=== PATIENT | female | born 1965 | race Caucasian/White ===

== ENCOUNTER 2018-03-13 11:44 | Emergency (ER) | payer OTHER ==
[2018-03-13] MEDS ORDERED: XYLOCAINE 1% HCL 20 ML MDV IJ ONE (11:53)
--- NOTE | 2018-03-13 11:58 | ERPHSYRPT ---
- History of Present Illness Time Seen by Provider: 03/13/18 11:54 Source: patient Exam Limitations: no limitations Physician History: 52-year-old white female arrives with complaint of a laceration to her left posterior thigh symptoms since just prior to arrival. 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 Patient is not having any problems moving. Past medical history includes TIA, arrhythmia, mitral valve prolapse, syncope, arthritis, fibromyalgia, osteoporosis, colitis, osteoarthritis, myasthenia gravis. Past surgical history includes hysterectomy, tonsillectomy, cervical fusion. History, rub him Timing/Duration: today Severity: moderate Modifying Factors: Improves With: nothing Associated Symptoms: No nausea, No vomiting, No abdominal pain, No shortness of breath, No heartburn, No diaphoresis, No cough, No chills, No chest pain, No fever, No headaches, No loss of appetite, No malaise, No rash, No syncope, No seizure, No weakness Allergies/Adverse Reactions: azithromycin [From Zithromax] Allergy (Verified 03/13/18 12:00) erythromycin base [Erythromycin Base] Allergy (Verified 03/13/18 12:00) levofloxacin [From Levaquin] Allergy (Verified 03/13/18 12:00) Home Medications: Diazepam 5 mg [Valium 5 MG] 5 mg PO HS 03/21/13 [History] Gabapentin 300 mg [Neurontin 300 mg] 600 mg PO Q4H PRN PRN 03/21/13 [ History] Mycophenolate Mofetil [Cellcept] 500 mg PO BID 03/21/13 [History] Pyridostigmine [place] [Mestinon] 60 mg PO QID 03/21/13 [History] Isosorbide Mononitrate [Isosorbide Mononitrate ER] 60 mg PO DAILY 02/15/14 [ History] Montelukast Sodium [Singulair] 10 mg PO DAILY 02/03/16 [History] Pyridostigmine [place] [Pyridostigmine [place] ER] 180 mg PO BID 02/03/16 [ History] Duloxetine HCl [Cymbalta] 60 mg PO DAILY 03/13/18 [History] Hx Tetanus, Diphtheria Vaccination/Date Given: Yes (up to date) Hx Influenza Vaccination/Date Given: Yes Hx Pneumococcal Vaccination/Date Given: No - Review of Systems Constitutional: No Fever, No Chills Eyes: No Symptoms Ears, Nose, & Throat: No Symptoms Respiratory: No Cough, No Dyspnea Cardiac: No Chest Pain, No Edema, No Syncope Abdominal/Gastrointestinal: No Abdominal Pain, No Nausea, No Vomiting, No Diarrhea Genitourinary Symptoms: No Dysuria Musculoskeletal: Other (deep laceration left posterior thigh approximately 10 cm ) Skin: Other (deep laceration left posterior thigh) Neurological: No Dizziness, No Focal Weakness, No Sensory Changes Psychological: No Symptoms Endocrine: No Symptoms All Other Systems: Reviewed and Negative - Past Medical History Pertinent Past Medical History: Yes Neurological History: TIA, Other ENT History: No Pertinent History Cardiac History: Arrhythmia, Other Respiratory History: No Pertinent History Endocrine Medical History: No Pertinent History Musculoskeletal History: Arthritis, Osteoarthritis, Osteoporosis, Other GI Medical History: Colitis History: No Pertinent History Psycho-Social History: No Pertinent History Female Reproductive Disorders: No Pertinent History Other Medical History: lupus,. myasthenias gravis - Past Surgical History Past Surgical History: Yes Musculoskeletal: Other Female Surgical History: Hysterectomy Other Surgical History: tonsilectomy. cervical fusion - Social History Smoking Status: Never smoker Exposure to second hand smoke: No Drug Use: none Patient Lives Alone: No - Nursing Vital Signs Nursing Vital Signs: Initial Vital Signs Temperature 98.3 F 03/13/18 11:56 Pulse Rate 67 03/13/18 11:56 Respiratory Rate 16 03/13/18 11:56 Blood Pressure 95/54 03/13/18 11:56 O2 Sat by Pulse Oximetry 97 03/13/18 11:56 Pain Scale Pain Intensity 2 - Physical Exam General Appearance: mild distress Eye Exam: PERRL/EOMI, eyes nml inspection Ears, Nose, Throat Exam: normal ENT inspection, TMs normal, pharynx normal, moist mucous membranes Neck Exam: normal inspection, non-tender, supple, full range of motion Respiratory Exam: normal breath sounds, lungs clear, No respiratory distress Cardiovascular Exam: regular rate/rhythm, normal heart sounds, normal peripheral pulses Gastrointestinal/Abdomen Exam: soft, normal bowel sounds, No tenderness, No mass Back Exam: normal inspection, normal range of motion, No CVA tenderness, No vertebral tenderness Extremity Exam: normal range of motion, other (8.5 cm laceration left posterior thigh) Neurologic Exam: alert, oriented x 3, cooperative, normal mood/affect, nml cerebellar function, nml station & gait, sensation nml, No motor deficits Skin Exam: other (8.5 cm laceration left posterior thigh) SpO2 Interpretation: normal - Course Nursing assessment & vital signs reviewed: Yes Ordered Tests: Active Orders 24 hr Category Date Time Status Prepare for Sutures STAT Care 03/13/18 11:53 Active Sutures STAT Care 03/13/18 11:53 Active Wound Care STAT Care 03/13/18 11:53 Active Medication Summary Discontinued Medications Generic Name Dose Route Start Last Admin Trade Name Freq PRN Reason Stop Dose Admin Diphtheria/Tetanus/Acell Pertussis 0.5 ml 03/13/18 11:59 03/13/18 12:20 Adacel Vial IM 03/13/18 12:00 0.5 ml .ONCE ONE Administration Diphtheria/Tetanus/Acell Pertussis Confirm 03/13/18 12:16 Adacel Vial Administered 03/13/18 12:17 Dose 0.5 ml IM .STK-MED ONE Lidocaine HCl 5 ml 03/13/18 11:53 03/13/18 12:22 Xylocaine 1% Hcl 20 Ml Mdv IJ 03/13/18 11:54 5 ml STAT ONE Administration Lidocaine HCl Confirm 03/13/18 12:10 Xylocaine 1% Hcl 20 Ml Mdv Administered 03/13/18 12:11 Dose 1 ml .ROUTE .STK-MED ONE Lidocaine HCl Confirm 03/13/18 12:24 Xylocaine 1% Hcl 20 Ml Mdv Administered 03/13/18 12:25 Dose 10 ml .ROUTE .STK-MED ONE - Progress Progress: improved Progress Note: 03/13/18 12:31 52-year-old white female arrives with complaint of a laceration to her left posterior thigh. Patient apparently was driving a lawnmower hit a bump and a portion of the lawn more struck her left posterior thigh. She has an 8.5 cm laceration to the left posterior thigh which is fairly deep but only involves the fat and skin. She has full range of motion to her left knee ankle foot and toes good capillary refill to her left foot and toes sensation intact to her left foot and toes dorsal pedal posterior tibial pulses are intact. Laceration repair 8.5 cm left posterior thigh. Laceration was sterilely cleansed with Hibiclens and irrigated with saline by the patient's nurse. Laceration is anesthetized with 1% lidocaine. Wound is examined no foreign bodies are noted. Laceration is repaired with 7 surgical shawnee. There are also Steri-Strips placed on a fairly superficial portion of the laceration at the lateral aspect of the wound. Bacitracin is applied. Sterile dressing is applied. Patient's DTaP was updated. Patient is neurovascularly intact after repair. Will discharge. - Departure Time of Disposition: 12:34 Departure Disposition: Home Clinical Impression: Laceration of left thigh Qualifiers: Encounter type: initial encounter Qualified Code(s): S71.112A - Laceration without foreign body, left thigh, initial encounter Condition: Fair Critical Care Time: No Referrals: MINOO ESPINAL [Primary Care Provider] - Instructions: Laceration Repair With [place] ([place]) Additional Instructions: Return home. Keep area clean and dry. Bacitracin to area until healed. [place] out in 5-7 days. Follow-up with your family doctor or return if signs of infection or problems. Return for acute distress or for severe symptoms. bactrim as prescribed. Prescriptions: Smz/Tmp Ds Tablet [Bactrim Ds Tablet] 1 tab PO BID #20 tablet
[2018-03-13] MEDS ORDERED: Adacel Vial IM ONE ×2 (11:59→12:16)
[2018-03-13] MEDS ORDERED: XYLOCAINE 1% HCL 20 ML MDV ONE ×2 (12:10→12:24)
[2018-03-13] MEDS ORDERED: BACIGUENT PACKET ONE (12:36)
[2018-03-13 12:47] VITALS: BP 99/58; PULSE 68; O2SAT 98
[2018-03-14] MEDS ORDERED: XYLOCAINE 1% HCL 20 ML MDV IJ ONE (11:01)
[2018-03-14] MEDS ORDERED: BACIGUENT PACKET TP ONE (11:02)
== END 2018-03-13 13:06 | disposition home or self-care (01) ==
LOC: ED 11:44
DX: S71.112A Laceration without foreign body, left thigh, initial encounter (principal); W22.8XXA Striking against or struck by other objects, initial encounter; Y92.096 Garden or yard of other non-institutional residence as the place of occurrence of the external cause; I34.1 Nonrheumatic mitral (valve) prolapse; R55 Syncope and collapse; M19.90 Unspecified osteoarthritis, unspecified site; M79.7 Fibromyalgia; M81.0 Age-related osteoporosis without current pathological fracture; G70.00 Myasthenia gravis without (acute) exacerbation; Z86.73 Personal history of transient ischemic attack (TIA), and cerebral infarction without residual deficits; Z79.899 Other long term (current) drug therapy
CPT/HCPCS: 12002; 90471; 90715; 96372; 99284; A9270-GY

== ENCOUNTER 2019-02-28 22:23 | Observation (INO) | payer OTHER ==
[2019-02-28] MEDS ORDERED: Zofran 4 MG/2 ML VIAL IV ONE (22:47)
[2019-02-28] MEDS ORDERED: Sodium Chloride 0.9% 1000 ML 1,000 ML IV STA ×2 (22:47→23:31)
[2019-02-28] MEDS ORDERED: TORAdol 30 mg Injection IV ONE (22:47)
--- NOTE | 2019-02-28 22:47 | ERPHSYRPT ---
- History of Present Illness Time Seen by Provider: 02/28/19 22:43 Historian: patient Exam Limitations: no limitations Patient Subjective Stated Complaint: PT IS ALERT AND ORIENTED. PT IS AMBULATORY WITH A STEADY GAIT. PT COMES IN WITH C/O BILAT FLANK PAIN, LOWER ABDOMEN PRESSURE AND PAIN, PAIN WITH URINATION, FREQUENCY, HESITENCY THAT ALL STARTED TODAY. PT ABD TENDER TO TOUCH. PT URINE IS YELLOW AND CLOUDY WITH MUCOUS GROSSLY PRESENT. Triage Nursing Assessment: SEE ABOVE Physician History: abdominal pain and tenderness greater left flank onset today in 53 yr olf , prior hysterectomy and opph on left side; no vomiting; blood in urine; Timing/Duration: today Activities at Onset: none Quality: burning, sharpness Abdominal Pain Onset Location: generalized abdomen, flank Pain Radiation: periumbilical, flank Severity of Pain-Max: moderate Severity of Pain-Current: moderate Modifying Factors: Improves With: urinating Previous symptoms: no prior history Allergies/Adverse Reactions: azithromycin [From Zithromax] Allergy (Verified 03/13/18 12:00) erythromycin base [Erythromycin Base] Allergy (Verified 03/13/18 12:00) levofloxacin [From Levaquin] Allergy (Verified 03/13/18 12:00) Home Medications: Diazepam 5 mg [Valium 5 MG] 5 mg PO HS 03/21/13 [History] Gabapentin 300 mg [Neurontin 300 mg] 600 mg PO Q4H PRN PRN 03/21/13 [ History] Mycophenolate Mofetil [Cellcept] 500 mg PO BID 03/21/13 [History] Pyridostigmine [place] [Mestinon] 60 mg PO QID 03/21/13 [History] Isosorbide Mononitrate [Isosorbide Mononitrate ER] 60 mg PO DAILY 02/15/14 [ History] Montelukast Sodium [Singulair] 10 mg PO DAILY 02/03/16 [History] Pyridostigmine [place] [Pyridostigmine [place] ER] 180 mg PO BID 02/03/16 [ History] Duloxetine HCl [Cymbalta] 60 mg PO DAILY 03/13/18 [History] Hx Tetanus, Diphtheria Vaccination/Date Given: Yes (up to date) Hx Influenza Vaccination/Date Given: Yes Hx Pneumococcal Vaccination/Date Given: No Immunizations Up to Date: Yes - Review of Systems Constitutional: No Fever, No Chills Eyes: No Symptoms Ears, Nose, & Throat: No Symptoms Respiratory: No Cough, No Dyspnea Cardiac: No Chest Pain, No Edema, No Syncope Abdominal/Gastrointestinal: Abdominal Pain, No Nausea, No Vomiting, No Diarrhea Genitourinary Symptoms: Dysuria, Frequency, Hematuria, Urgency, Flank Pain Musculoskeletal: No Back Pain, No Neck Pain Skin: No Rash Neurological: No Dizziness, No Focal Weakness, No Sensory Changes Psychological: No Symptoms Endocrine: No Symptoms All Other Systems: Reviewed and Negative - Past Medical History Pertinent Past Medical History: Yes Neurological History: TIA, Other ENT History: No Pertinent History Cardiac History: Arrhythmia, Other Respiratory History: No Pertinent History Endocrine Medical History: No Pertinent History Musculoskeletal History: Arthritis, Osteoarthritis, Osteoporosis, Other GI Medical History: Colitis History: No Pertinent History Psycho-Social History: No Pertinent History Female Reproductive Disorders: No Pertinent History Other Medical History: lupus,. myasthenias gravis. FIBROMYALGIA - Past Surgical History Past Surgical History: Yes Musculoskeletal: Other Female Surgical History: Hysterectomy Other Surgical History: tonsilectomy. cervical fusion - Social History Smoking Status: Never smoker Exposure to second hand smoke: No Drug Use: none Patient Lives Alone: No - Female History Hx Now: No - Nursing Vital Signs Nursing Vital Signs: Initial Vital Signs Temperature 99.3 F 02/28/19 22:31 Pulse Rate 99 H 02/28/19 22:31 Respiratory Rate 18 02/28/19 22:31 Blood Pressure 133/83 02/28/19 22:31 O2 Sat by Pulse Oximetry 99 02/28/19 22:31 Pain Scale Pain Intensity 7 - Physical Exam General Appearance: no apparent distress, alert Eye Exam: PERRL/EOMI, eyes nml inspection Ears, Nose, Throat Exam: normal ENT inspection, pharynx normal, moist mucous membranes Neck Exam: normal inspection, non-tender, supple, full range of motion Respiratory Exam: normal breath sounds, lungs clear, No respiratory distress Cardiovascular Exam: regular rate/rhythm, normal heart sounds Gastrointestinal/Abdomen Exam: soft, tenderness, guarding, No mass Pelvic Exam: deferred Rectal Exam: deferred Back Exam: normal inspection, normal range of motion, No CVA tenderness, No vertebral tenderness Extremity Exam: normal inspection, normal range of motion, pelvis stable Neurologic Exam: alert, oriented x 3, cooperative, normal mood/affect, nml cerebellar function, sensation nml, No motor deficits Skin Exam: normal color, warm, dry SpO2: 99 - Course Nursing assessment & vital signs reviewed: Yes - CT Exams Abdomen/Pelvis CT Interpretation: Tele-radiologist Report, No appendicitis, Other ( diverticulosis ; no renal stone, pyelo , or gallstones; ) Ordered Tests: Active Orders 24 hr Category Date Time Status IV Insertion STAT Care 02/28/19 22:47 Active NPO (ED) STAT Care 02/28/19 22:47 Active ABDOMEN AND PELVIS W/0 CONTRAS [CT] Stat Exams 02/28/19 22:48 Taken AMYLASE Stat Lab 02/28/19 22:56 Completed CBC W DIFF Stat Lab 02/28/19 22:56 Completed CULTURE,URINE Stat Lab 02/28/19 22:56 Received LIPASE Stat Lab 02/28/19 22:56 Completed Lactic Acid Stat Lab 02/28/19 22:59 Completed UA W/RFX UR CULTURE Stat Lab 02/28/19 22:56 Completed Medication Summary Discontinued Medications Generic Name Dose Route Start Last Admin Trade Name Freq PRN Reason Stop Dose Admin Sodium Chloride 1,000 mls @ 999 mls/hr 02/28/19 22:47 02/28/19 23:41 Sodium Chloride 0.9% 1000 Ml IV 02/28/19 23:47 Infused .Q1H1M STA Infusion Sodium Chloride Confirm 02/28/19 22:51 Sodium Chloride 0.9% 1000 Ml Administered 02/28/19 22:52 Dose 1,000 mls @ ud .ROUTE .STK-MED ONE Ceftriaxone Sodium/Dextrose 1 g in 50 mls @ 100 mls/hr 02/28/19 23:30 23:42 Rocephin 1 Gm-D5w 50 Ml Bag IV 02/28/19 23:59 100 mls/hr STAT STA 100 mls/hr Administration Sodium Chloride 1,000 mls @ 999 mls/hr 02/28/19 23:31 02/28/19 23:43 Sodium Chloride 0.9% 1000 Ml IV 03/01/19 00:31 999 mls/hr .Q1H1M STA Administration Sodium Chloride Confirm 02/28/19 23:39 Sodium Chloride 0.9% 1000 Ml Administered 02/28/19 23:40 Dose 1,000 mls @ ud .ROUTE .STK-MED ONE Ceftriaxone Sodium/Dextrose Confirm 02/28/19 23:39 Rocephin 1 Gm-D5w 50 Ml Bag Administered 02/28/19 23:40 Dose 1 g in 50 mls @ ud IV .STK-MED ONE Ketorolac Tromethamine 30 mg 02/28/19 22:47 02/28/19 22:55 Toradol 30 Mg Injection IV 02/28/19 22:48 30 mg STAT ONE Administration Ketorolac Tromethamine Confirm 02/28/19 22:51 Toradol 30 Mg Injection Administered 02/28/19 22:52 Dose 30 mg .ROUTE .STK-MED ONE Ondansetron HCl 4 mg 02/28/19 22:47 02/28/19 22:56 Zofran 4 Mg/2 Ml Vial IV 02/28/19 22:48 4 mg STAT ONE Administration Ondansetron HCl Confirm 02/28/19 22:51 Zofran 4 Mg/2 Ml Vial Administered 02/28/19 22:52 Dose 4 mg .ROUTE .STK-MED ONE Lab/Rad Data: Laboratory Result Diagrams 02/28/19 22:56 Laboratory Results 02/28/19 02/28/19 02/28/19 Range/Units 22:59 22:56 22:56 WBC (4.0-10.5) K/mm3 RBC (4.1-5.4) M/mm3 Hgb (12.0-16.0) gm/dl Hct (35-47) % MCV (78-100) fl MCH (26-32) pg MCHC (32-36) g/dl RDW (11.5-14.0) % Plt Count (150-450) K/mm3 MPV (6-9.5) fl Gran % (36.0-66.0) % Eos # (Auto) (0-0.5) Absolute Lymphs (auto) (1.0-4.6) Absolute Monos (auto) (0.0-1.3) Lymphocytes % (24.0-44.0) % Monocytes % (0.0-12.0) % Eosinophils % (0.00-5.0) % Basophils % (0.0-0.4) % Absolute Granulocytes (1.4-6.9) Basophils # (0-0.4) Lactic Acid 1.0 (0.4-2.0) Amylase 234 H (30-110) U/L Lipase 609 H (23-300) U/L Urine Color YELLOW (YELLOW) Urine Appearance CLOUDY (CLEAR) Urine pH 5.0 (5-6) Ur Specific Reeves 1.017 (1.005-1.025) Urine Protein 100 (Negative) Urine Ketones NEGATIVE (NEGATIVE) Urine Blood LARGE (0-5) Srinath/ul Urine Nitrite NEGATIVE (NEGATIVE) Urine Bilirubin NEGATIVE (NEGATIVE) Urine Urobilinogen NEGATIVE (0-1) mg/dL Ur Leukocyte Esterase LARGE (NEGATIVE) Urine WBC (Auto) >100 (0-5) /HPF Urine RBC (Auto) >101 (0-2) /HPF U Epithel Cells (Auto) NONE (FEW) /HPF Urine Bacteria (Auto) NONE (NEGATIVE) /HPF Urine Mucus (Auto) SLIGHT (NEGATIVE) /HPF Urine Culture Reflexed YES (NO) Urine Glucose NEGATIVE (NEGATIVE) mg/dL 02/28/19 Range/Units 22:56 WBC 10.6 H (4.0-10.5) K/mm3 RBC 3.63 L (4.1-5.4) M/mm3 Hgb 11.1 L (12.0-16.0) gm/dl Hct 35.3 (35-47) % MCV 97.2 (78-100) fl MCH 30.5 (26-32) pg MCHC 31.4 L (32-36) g/dl RDW 12.0 (11.5-14.0) % Plt Count 239 (150-450) K/mm3 MPV 10.1 H (6-9.5) fl Gran % 73.5 H (36.0-66.0) % Eos # (Auto) 0.07 (0-0.5) Absolute Lymphs (auto) 2.03 (1.0-4.6) Absolute Monos (auto) 0.68 (0.0-1.3) Lymphocytes % 19.2 L (24.0-44.0) % Monocytes % 6.4 (0.0-12.0) % Eosinophils % 0.7 (0.00-5.0) % Basophils % 0.2 (0.0-0.4) % Absolute Granulocytes 7.75 H (1.4-6.9) Basophils # 0.02 (0-0.4) Lactic Acid (0.4-2.0) Amylase (30-110) U/L Lipase (23-300) U/L Urine Color (YELLOW) Urine Appearance (CLEAR) Urine pH (5-6) Ur Specific Reeves (1.005-1.025) Urine Protein (Negative) Urine Ketones (NEGATIVE) Urine Blood (0-5) Srinath/ul Urine Nitrite (NEGATIVE) Urine Bilirubin (NEGATIVE) Urine Urobilinogen (0-1) mg/dL Ur Leukocyte Esterase (NEGATIVE) Urine WBC (Auto) (0-5) /HPF Urine RBC (Auto) (0-2) /HPF U Epithel Cells (Auto) (FEW) /HPF Urine Bacteria (Auto) (NEGATIVE) /HPF Urine Mucus (Auto) (NEGATIVE) /HPF Urine Culture Reflexed (NO) Urine Glucose (NEGATIVE) mg/dL - Progress Progress: improved, re-examined Progress Note: 03/01/19 00:59 dicussed with pt and dr boston and all agree best to place pt in on obs for treatment of pancreatitis , and urinary infection Discussed with .: Jose Maria Will see patient in: hospital (observation) Counseled pt/family regarding: lab results, diagnosis, need for follow-up, rad results - Departure Departure Disposition: Observation Clinical Impression: Pancreatitis, UTI/early pyelo Condition: Good Critical Care Time: No Referrals: MINOO BOSTON [Primary Care Provider] -
[2019-02-28] MEDS ORDERED: Sodium Chloride 0.9% 1000 ML 1,000 ML ONE ×2 (22:51→23:39)
[2019-02-28] MEDS ORDERED: TORAdol 30 mg Injection ONE (22:51)
[2019-02-28] MEDS ORDERED: Zofran 4 MG/2 ML VIAL ONE (22:51)
[2019-02-28 22:58] LABS: BASOPHIL % 0.2 % (0.0-0.4); Basophil (Absolute #) 0.02 (0-0.4); Eosinophil % 0.7 % (0.00-5.0); Eosinophil (Absolute #) 0.07 (0-0.5); Granulocyte Absolute (ANC) 7.75 (1.4-6.9); Granulocytes % 73.5 % (36.0-66.0); Hematocrit 35.3 % (35-47); Hemoglobin 11.1 gm/dl (12.0-16.0); Lymphocyte (Absolute #) 2.03 (1.0-4.6); Lymphocytes % 19.2 % (24.0-44.0); Mean Cell Volume 97.2 fl (78-100); Mean Corpuscular Hgb Concent. 31.4 g/dl (32-36); Mean Platelet Volume 10.1 fl (6-9.5); Monocyte (Absolute #) 0.68 (0.0-1.3); Monocytes % 6.4 % (0.0-12.0); Platelet Count 239 K/mm3 (150-450); Red Blood Count 3.63 M/mm3 (4.1-5.4); White Blood Count 10.6 K/mm3 (4.0-10.5)
[2019-02-28 23:03] LABS: Mean Corpuscular Hemoglobin 30.5 pg (26-32)
[2019-02-28 23:12] LABS: AMYLASE 234 U/L (30-110)
[2019-02-28 23:18] LABS: Appearance CLOUDY (CLEAR); Bilirubin NEGATIVE (NEGATIVE); Blood LARGE Ery/ul (0-5); Glucose NEGATIVE (NEGATIVE); Ketones NEGATIVE (NEGATIVE); Leukocyte Esterase LARGE (NEGATIVE); Mucus SLIGHT /HPF (NEGATIVE); Nitrite NEGATIVE (NEGATIVE); Protein,Urine Dip 100 (Negative); Specific Gravity 1.017 (1.005-1.025); Urobilinogen NEGATIVE mg/dL (0-1); WBC >100 /HPF (0-5)
[2019-02-28 23:19] LABS: RBC >101 /HPF (0-2)
[2019-02-28] MEDS ORDERED: ROCEPHIN 1 Gm-D5w 50 ml Bag** 1 G/50 ML IVPB IV STA (23:30)
[2019-02-28] MEDS ORDERED: ROCEPHIN 1 Gm-D5w 50 ml Bag** 1 G/50 ML IVPB IV ONE (23:39)
[2019-03-01] MEDS ORDERED: DILAUDID 2 MG INJECTION IV PRN (01:51)
[2019-03-01] MEDS ORDERED: Valium 5 MG PO PRN ×2 (01:51→07:46)
[2019-03-01] MEDS ORDERED: NovoLIN R SQ PRN (01:51)
[2019-03-01] MEDS ORDERED: TYLENOL 325 MG PO PRN (01:51)
[2019-03-01] MEDS ORDERED: Zofran 4 MG/2 ML VIAL IV PRN (01:51)
[2019-03-01] MEDS: Sodium Chloride 0.9% 1000 ML 1,000 ML IV SCH ×3 (01:59→21:54)
[2019-03-01] MEDS ORDERED: NEURONTIN 300 MG PO SCH (02:00)
[2019-03-01] MEDS ORDERED: NEURONTIN 300 MG ONE (02:46)
[2019-03-01 05:59] LABS: BASOPHIL % 0.1 % (0.0-0.4); Basophil (Absolute #) 0.01 (0-0.4); Eosinophil % 1.2 % (0.00-5.0); Eosinophil (Absolute #) 0.09 (0-0.5); Granulocytes % 69.4 % (36.0-66.0); Hematocrit 32.3 % (35-47); Lymphocyte (Absolute #) 1.69 (1.0-4.6); Lymphocytes % 22.1 % (24.0-44.0); Mean Cell Volume 98.2 fl (78-100); Mean Platelet Volume 10.5 fl (6-9.5); Monocyte (Absolute #) 0.55 (0.0-1.3); Monocytes % 7.2 % (0.0-12.0); Platelet Count 199 K/mm3 (150-450); Red Blood Count 3.29 M/mm3 (4.1-5.4); White Blood Count 7.6 K/mm3 (4.0-10.5)
[2019-03-01 06:06] LABS: Mean Corpuscular Hemoglobin 30.3 pg (26-32)
[2019-03-01 06:21] LABS: ALBUMIN 3.5 g/dL (3.5-5.0); ALKALINE PHOSPHATASE 75 U/L (38-126); AMYLASE 217 U/L (30-110); ANION GAP 4.3 MEQ/L (5-15); BLOOD UREA NITROGEN 13 mg/dL (7-17); CHLORIDE 117 mmol/L (98-107); Calcium 8.6 mg/dL (8.4-10.2); Carbon Dioxide 25 mmol/L (22-30); Creatinine 1 0.67 mg/dL (0.52-1.04); Glucose 92 mg/dL (74-106); SGOT/AST 38 U/L (14-36); SGPT/ALT 29 U/L (0-35); SODIUM 142 mmol/L (137-145); Total Protein 5.9 g/dL (6.3-8.2)
[2019-03-01] MEDS ORDERED: PATIENT OWN MEDICATION PO PRN (09:32)
[2019-03-01] MEDS ORDERED: NON-FORMULARY ITEM (Pyridostigmine Bromide [Mestinon] 60 MG) PO SCH (10:00)
[2019-03-01] MEDS ORDERED: PATIENT OWN MEDICATION PO SCH ×6 (10:00→22:00)
[2019-03-01] MEDS ORDERED: MYCOPHENOLATE MOFETIL 1000 MG PO SCH (10:00)
[2019-03-01] MEDS ORDERED: Imdur 60MG PO SCH (10:00)
[2019-03-01] MEDS ORDERED: Cymbalta 30 MG Capsule PO SCH (10:00)
[2019-03-01] MEDS ORDERED: Singulair 10 MG PO SCH (10:00)
[2019-03-01] MEDS ORDERED: PROTONIX 40 MG IV IV SCH (10:00)
[2019-03-01] MEDS ORDERED: PYRIDOSTIGMINE BROMIDE 180 MG PO SCH (10:00)
[2019-03-01] MEDS ORDERED: Nitrostat 0.4 MG Tablet SL PRN (11:00)
[2019-03-01] MEDS ORDERED: Voltaren GEL TOP PRN (11:00)
[2019-03-01] MEDS ORDERED: TYLENOL EXTRA STRENGTH 500 MG PO SCH (11:00)
[2019-03-01] MEDS ORDERED: TYLENOL EXTRA STRENGTH 500 MG PO PRN (11:01)
[2019-03-01] MEDS: Pepcid 20 MG VIAL IV SCH ×2 (11:07→22:07)
[2019-03-01] MEDS: PATIENT OWN MEDICATION PO SCH ×3 (11:11→22:14)
[2019-03-01] MEDS ORDERED: MEDICATION INTERVENTION MC SCH (11:15)
[2019-03-01] MEDS: PYRIDIUM 200 MG PO SCH ×2 (11:23→22:12)
[2019-03-01] MEDS: BACTRIM DS TABLET PO SCH ×2 (12:03→22:12)
[2019-03-01] MEDS: NORCO 5/325 MG PO PRN ×2 (13:10→19:55)
--- NOTE | 2019-03-01 13:25 | XRAY ---
Indication: Bilateral flank pain. Discolored urine. Multiple contiguous axial images obtained through the abdomen and pelvis without contrast as ordered. Comparison: September 23, 2011. Lung bases demonstrate mild bibasilar dependent atelectasis. No infiltrate or effusion. Heart is not enlarged. Stomach is distended with food/fluid. Noncontrasted stomach and bowel loops appear nonobstructed. Normal appendix. There is now mild/moderate diffuse scattered colonic fecal debris throughout and scattered descending/sigmoid diverticulosis. No free fluid/air. Remaining liver, gallbladder, pancreas, spleen, adrenal glands, kidneys, ureters, bladder, and aorta appear unremarkable for noncontrast exam. Osseous structures intact. Impression: 1. New fecal stasis without obstruction. 2. Again incidental descending/sigmoid diverticulosis without diverticulitis. 3. Remaining CT abdomen/pelvis without contrast exam is negative. Comment: Preliminary interpretation was made by [facility]. No critical discrepancy. CTDI 11.13
[2019-03-01] MEDS: NEURONTIN 300 MG PO PRN ×2 (16:40→22:12)
[2019-03-01] MEDS ORDERED: ROCEPHIN 1 Gm-D5w 50 ml Bag** 1 G/50 ML IVPB IV SCH (22:00)
[2019-03-02 05:47] LABS: BASOPHIL % 0.3 % (0.0-0.4); Basophil (Absolute #) 0.01 (0-0.4); Eosinophil % 1.6 % (0.00-5.0); Eosinophil (Absolute #) 0.06 (0-0.5); Hematocrit 32.6 % (35-47); Hemoglobin 10.2 gm/dl (12.0-16.0); Lymphocyte (Absolute #) 1.31 (1.0-4.6); Lymphocytes % 34.4 % (24.0-44.0); Mean Cell Volume 97.6 fl (78-100); Mean Corpuscular Hemoglobin 30.5 pg (26-32); Mean Corpuscular Hgb Concent. 31.3 g/dl (32-36); Mean Platelet Volume 10.1 fl (6-9.5); Monocyte (Absolute #) 0.33 (0.0-1.3); Monocytes % 8.7 % (0.0-12.0); Platelet Count 186 K/mm3 (150-450); Red Blood Count 3.34 M/mm3 (4.1-5.4); White Blood Count 3.8 K/mm3 (4.0-10.5)
[2019-03-02 06:14] LABS: ALBUMIN 3.4 g/dL (3.5-5.0); ALKALINE PHOSPHATASE 57 U/L (38-126); AMYLASE 140 U/L (30-110); ANION GAP 4.1 MEQ/L (5-15); BLOOD UREA NITROGEN 11 mg/dL (7-17); CHLORIDE 115 mmol/L (98-107); Calcium 8.6 mg/dL (8.4-10.2); Carbon Dioxide 26 mmol/L (22-30); Creatinine 1 0.65 mg/dL (0.52-1.04); Glucose 89 mg/dL (74-106); SGOT/AST 27 U/L (14-36); SGPT/ALT 25 U/L (0-35); SODIUM 141 mmol/L (137-145); Total Protein 5.9 g/dL (6.3-8.2)
[2019-03-02] MEDS: NEURONTIN 300 MG PO PRN (06:46)
[2019-03-02] MEDS: PATIENT OWN MEDICATION PO SCH (06:47)
[2019-03-02 07:34] VITALS: BP 140/65; PULSE 63; O2SAT 92
[2019-03-02] MEDS ORDERED: NON-FORMULARY ITEM (Duloxetine Hcl [Cymbalta] 20 MG) PO SCH (10:00)
--- NOTE | 2019-03-02 11:28 | HP ---
CHIEF COMPLAINT: Urgency, frequency and abdominal pain. HISTORY OF PRESENT ILLNESS: The patient is a 53 year-old white female who reports that she was shopping with her and she began having problems with urgency of urination. She reports she went to the bathroom and urinated but felt like she immediately had to go again. She began having problems with flank pain and presented to the emergency room for further evaluation and management. PAST MEDICAL/SURGICAL HISTORY: Significant for myasthenia gravis which has been under control for years. She has fibromyalgia, lupus erythematosus. She has had hysterectomy, tonsillectomy and cervical fusion for spinal stenosis. HOME MEDICATIONS: Valium 5 mg at night, gabapentin 300 mg tablets 2 tablets PRN. She is on CellCept 500 mg b.i.d., Mestinon 60 mg four times a day, isosorbide mononitrate 60 mg a day, Montelukast 10 mg a day, pyridostigmine 180 mg b.i.d., duloxetine 60 mg a day. ALLERGIES: LEVAQUIN, ERYTHROMYCIN, TRAMADOL. PHYSICAL EXAMINATION: The patient's vital signs on admission showed a temperature 99.3F, pulse 99, respiratory rate 18 and blood pressure 133/83. O2 saturation 99%. HEENT: Normocephalic, atraumatic. Pupils equal round reactive to light. Extraocular movements intact. Oropharynx is pink and moist. NECK: Supple without lymphadenopathy, thyromegaly or JVD. CHEST: Clear to auscultation. HEART: Regular rate and rhythm. ABDOMEN: Soft. There is some flank tenderness on the left side. There are no palpable masses. EXTREMITIES: Without cyanosis, clubbing or edema. NEUROLOGIC: The patient is alert and oriented x3. LAB DATA AND TESTS: Laboratory studies from the emergency room revealed white count of 10,600, hemoglobin 11.1, PLT count 239,000 with 73.5% granulocytes. Lactic acid 1.0. Urine with specific gravity 1.017. Nitrite was negative however there were greater than 100 white blood cells per high power field and also greater than 100 red blood cells per high power field. Amylase 234 and lipase 609 somewhat elevated. Her metabolic panel otherwise sugar was 92, BUN 13, creatinine 0.67. ASSESSMENT: A patient with pyelonephritis, elevation in pancreatic enzymes. CT scan showed no abnormalities intra-abdominal or otherwise. The patient has been placed in the hospital on IV fluids, pain control and IV Rocephin. She will continue her usual home medications otherwise as noted above.
== END 2019-03-02 09:40 | disposition home or self-care (01) ==
LOC: ED 22:23 → MED SURG 03-01 01:45
PROVIDERS: ADMIT Family Medicine; ATTEND Family Medicine
DX: N12 Tubulo-interstitial nephritis, not specified as acute or chronic (principal); R10.9 Unspecified abdominal pain; R79.89 Other specified abnormal findings of blood chemistry; Z79.899 Other long term (current) drug therapy
CPT/HCPCS: 36000; 36415; 74176; 80053; 81001; 82150; 83605; 83690; 85025; 87077; 87086; 87186; 93268; 94762; 96360; 96361; 96365; 96374; 96375; 99285; G0378; J0696; J1170; J1885; J2405; A9270-GY

== ENCOUNTER 2019-04-06 06:09 | Day surgery (SDC) | payer OTHER ==
[2019-04-06] MEDS ORDERED: Lactated Ringers 1,000 ML IV ONE (06:37)
[2019-04-06] MEDS ORDERED: Lactated Ringers 1,000 ML IV SCH (07:00)
[2019-04-06] MEDS ORDERED: DIPRIVAN 200 MG/20 ML IV ONE (07:17)
[2019-04-06 08:24] VITALS: O2SAT 100
--- NOTE | 2019-04-06 08:51 | OP ---
SURGERY DATE/TIME: 04/06/2019 0732 PREOPERATIVE DIAGNOSIS: Left upper quadrant abdominal pain. POSTOPERATIVE DIAGNOSIS: Mild gastritis. PROCEDURE: Esophagogastroduodenoscopy with cold forceps biopsy of gastric antrum. SURGEON: Dr. Moise. ANESTHESIA: Medications were given by the anesthesia department. BRIEF HISTORY: The patient is a 53 year old white female presenting now with abdominal pain particularly in the left upper quadrant. The patient was felt the need to have endoscopic evaluation and she had previously had her gallbladder evaluation and CT scan performed as well. The patient was described the risks of the procedure including the risk of perforation, phlebitis, untoward reaction to medication, bleeding and missed lesions. The patient verbalized her understanding and desired to have the procedure performed. DESCRIPTION OF PROCEDURE: The patient was given the medications by the anesthesia department. She had continuous pulse oximetry, ECG monitoring, intermittent blood pressure monitoring and tidal CO2 monitoring during the examination. She was placed in the left lateral decubitus position. A bite block was placed. The flexible Olympus gastroscope was used to intubate the oropharynx. A view of the larynx was obtained and was normal. The scope was easily passed in the esophagus which was normal throughout its length. The stomach was entered where normal gastric rugal folds were seen and these distended nicely with insufflation of air. The scope was passed along the greater curvature of the stomach to the antrum. The pylorus was encountered and intubated. The duodenum inspected and found to be normal. The scope is withdrawn towards the stomach. Again, a retroflex view was obtained of the lesser curvature, fundus and cardia regions of the stomach and these appeared normal as well. The scope was then redirected towards the gastric antrum where biopsies were obtained to rule out the presence of Helicobacter pylori-type organisms. The scope was then removed from the patient who tolerated the procedure well and was sent back to the hospital [facility] in good condition.
[2019-04-06 09:07] VITALS: BP 121/69; PULSE 59
== END 2019-04-06 09:10 | disposition home or self-care (01) ==
LOC: SDC 06:09
PROVIDERS: ATTEND Family Medicine
DX: K29.70 Gastritis, unspecified, without bleeding (principal)
CPT/HCPCS: J2704

== ENCOUNTER 2019-05-08 22:04 | Emergency (ER) | payer OTHER ==
--- NOTE | 2019-05-08 22:18 | ERPHSYRPT ---
- History of Present Illness Time Seen by Provider: 05/08/19 22:18 Historian: patient Exam Limitations: no limitations Physician History: 53 y/o white female with h/o myasthenia gravis as well as recent admission into hospital 03/01/19 for pancreatitis and pyelonephritis. pts pcp is dr. boston. pt has had chronic low level abd pain ever since then. however, she has had several episodes of worsening abd pain. unknown reason for pancreatitis. pt also with chronic right hip pain with mri scheduled saturday05/11/19 and fibromyalgia. denies n/v/d but has decreased appetite Timing/Duration: today Quality: cramping Abdominal Pain Onset Location: generalized abdomen Severity of Pain-Max: moderate Severity of Pain-Current: moderate Associated Symptoms: loss of appetite Previous symptoms: same symptoms as today Allergies/Adverse Reactions: azithromycin [From Zithromax] Allergy (Severe, Verified 04/06/19 06:28) myasthenia crisis erythromycin base [Erythromycin Base] Allergy (Severe, Verified 04/06/19 06:28) myasthenia crisis levofloxacin [From Levaquin] Allergy (Severe, Verified 04/06/19 06:28) myasthenia crisis tramadol [From Ultram] Adverse Reaction (Verified 04/06/19 06:28) Rash Home Medications: Diazepam 5 mg [Valium 5 MG] 5 mg PO HS 03/21/13 [History] Mycophenolate Mofetil [Cellcept] 1,000 mg PO BID 03/21/13 [History] Isosorbide Mononitrate [Isosorbide Mononitrate ER] 60 mg PO DAILY 02/15/14 [ History] Pyridostigmine [place] [Pyridostigmine [place] ER] 180 mg PO BID 02/03/16 [ History] Duloxetine HCl [Cymbalta] 20 mg PO BID 03/13/18 [History] Acetaminophen 500 mg [Tylenol Extra Strength 500 mg] 1,000 mg PO Q4H PRN 03/01/19 [History] Diclofenac Sodium Gel [Voltaren GEL] 1 gm TOP BIDPRN PRN 03/01/19 [History ] Gabapentin [Neurontin] 1,200 mg PO BID 03/01/19 [History] Gabapentin [Neurontin] 600 mg PO BID 03/01/19 [History] Nitroglycerin 0.4 mg Tablet [Nitrostat 0.4 MG Tablet] 1 mg SL Q5MIN PRN MR X 3 PRN 03/01/19 [History] Pyridostigmine [place] [Mestinon] 60 mg PO BID 03/01/19 [History] Dicyclomine HCl 20 mg [Bentyl 20 mg] 20 mg PO TID 05/08/19 [History] Omeprazole Magnesium [Prilosec Otc] 20 mg PO DAILY 05/08/19 [History] Hx Tetanus, Diphtheria Vaccination/Date Given: Yes (up to date) Hx Influenza Vaccination/Date Given: Yes Hx Pneumococcal Vaccination/Date Given: No - Review of Systems Constitutional: No Symptoms Eyes: No Symptoms Ears, Nose, & Throat: No Symptoms Respiratory: No Symptoms Cardiac: No Symptoms Abdominal/Gastrointestinal: Abdominal Pain, Appetite Changes Genitourinary Symptoms: No Symptoms Musculoskeletal: Joint Pain (chronic right hip pain) Skin: No Symptoms Neurological: No Symptoms Psychological: No Symptoms Endocrine: No Symptoms Hematologic/Lymphatic: No Symptoms Immunological/Allergic: No Symptoms All Other Systems: Reviewed and Negative - Past Medical History Pertinent Past Medical History: Yes Neurological History: TIA, Other ENT History: No Pertinent History Cardiac History: Arrhythmia, Other Respiratory History: No Pertinent History Endocrine Medical History: No Pertinent History Musculoskeletal History: Arthritis, Osteoarthritis, Osteoporosis, Other GI Medical History: Colitis History: No Pertinent History Psycho-Social History: No Pertinent History Female Reproductive Disorders: No Pertinent History Other Medical History: lupus,. myasthenias gravis. FIBROMYALGIA. syncope arrythmia. mitral valve prolapse - Past Surgical History Past Surgical History: Yes Neuro Surgical History: No Pertinent History Cardiac: Other Respiratory: No Pertinent History Gastrointestinal: No Pertinent History Genitourinary: No Pertinent History Musculoskeletal: Other Female Surgical History: Hysterectomy Other Surgical History: tonsilectomy. cervical fusion. usually has to stay in hospital after receiving general anesthesia - Social History Smoking Status: Never smoker Exposure to second hand smoke: No Drug Use: none Patient Lives Alone: No - Nursing Vital Signs Nursing Vital Signs: Initial Vital Signs Temperature 98.3 F 05/08/19 22:16 Pulse Rate 67 05/08/19 22:16 Respiratory Rate 16 05/08/19 22:16 Blood Pressure 123/65 05/08/19 22:16 O2 Sat by Pulse Oximetry 100 05/08/19 22:16 Pain Scale Pain Intensity 6 - Physical Exam General Appearance: mild distress, alert, anxiety Eye Exam: PERRL/EOMI, eyes nml inspection Ears, Nose, Throat Exam: normal ENT inspection, moist mucous membranes Neck Exam: normal inspection, non-tender, supple, full range of motion Respiratory Exam: normal breath sounds, lungs clear, airway intact, No chest tenderness, No respiratory distress Cardiovascular Exam: regular rate/rhythm, normal heart sounds, normal peripheral pulses Gastrointestinal/Abdomen Exam: soft, tenderness (diffuse), No guarding, No rebound Pelvic Exam: not done Rectal Exam: not done Back Exam: normal inspection, normal range of motion, No CVA tenderness, No vertebral tenderness Extremity Exam: normal inspection, normal range of motion, pelvis stable Neurologic Exam: alert, oriented x 3, cooperative, manual writer II-XII nml as tested, normal mood/affect, nml cerebellar function, nml station & gait, sensation nml Skin Exam: normal color, warm, dry Lymphatic Exam: No adenopathy SpO2 Interpretation: normal SpO2: 100 O2 Delivery: Room Air - Course Nursing assessment & vital signs reviewed: Yes Ordered Tests: Active Orders 24 hr Category Date Time Status IV Insertion STAT Care 05/08/19 22:26 Active ABDOMEN AND PELVIS W/0 CONTRAS [CT] Stat Exams 05/08/19 22:34 Taken AMYLASE Stat Lab 05/08/19 22:38 Completed CBC W DIFF Stat Lab 05/08/19 22:38 Completed CMP Stat Lab 05/08/19 22:38 Completed CULTURE,URINE Stat Lab 05/08/19 22:41 Received LIPASE Stat Lab 05/08/19 22:38 Completed Lactic Acid Stat Lab 05/08/19 22:50 Completed UA W/RFX UR CULTURE Stat Lab 05/08/19 22:41 Completed Medication Summary Discontinued Medications Generic Name Dose Route Start Last Admin Trade Name Freq PRN Reason Stop Dose Admin Cephalexin HCl 500 mg 05/09/19 01:34 05/09/19 01:57 Keflex 500 Mg PO 05/09/19 01:35 500 mg STAT ONE Administration Cephalexin HCl Confirm 05/09/19 01:55 Keflex 500 Mg Administered 05/09/19 01:56 Dose 500 mg .ROUTE .STK-MED ONE Hydromorphone HCl 1 mg 05/08/19 22:33 05/08/19 22:45 Hydromorphone 1 Mg/Ml Ampule IV 05/08/19 22:34 1 mg STAT ONE Administration Hydromorphone HCl Confirm 05/08/19 22:40 Hydromorphone 1 Mg/Ml Ampule Administered 05/08/19 22:41 Dose 1 mg .ROUTE .STK-MED ONE Sodium Chloride 1,000 mls @ 999 mls/hr 05/08/19 22:33 05/09/19 00:14 Sodium Chloride 0.9% 1000 Ml IV 05/08/19 23:33 Infused .Q1H1M STA Infusion Sodium Chloride Confirm 05/08/19 22:41 Sodium Chloride 0.9% 1000 Ml Administered 05/08/19 22:42 Dose 1,000 mls @ ud .ROUTE .STK-MED ONE Ondansetron HCl 4 mg 05/08/19 22:33 05/08/19 22:45 Zofran 4 Mg/2 Ml Vial IV 05/08/19 22:34 4 mg STAT ONE Administration Ondansetron HCl Confirm 05/08/19 22:40 Zofran 4 Mg/2 Ml Vial Administered 05/08/19 22:41 Dose 4 mg .ROUTE .STK-MED ONE Lab/Rad Data: Laboratory Result Diagrams 05/08/19 22:38 05/08/19 22:38 Laboratory Results 05/08/19 05/08/19 05/08/19 Range/Units 22:50 22:41 22:38 WBC (4.0-10.5) K/mm3 RBC (4.1-5.4) M/mm3 Hgb (12.0-16.0) gm/dl Hct (35-47) % MCV (78-100) fl MCH (26-32) pg MCHC (32-36) g/dl RDW (11.5-14.0) % Plt Count (150-450) K/mm3 MPV (6-9.5) fl Gran % (36.0-66.0) % Eos # (Auto) (0-0.5) Absolute Lymphs (auto) (1.0-4.6) Absolute Monos (auto) (0.0-1.3) Lymphocytes % (24.0-44.0) % Monocytes % (0.0-12.0) % Eosinophils % (0.00-5.0) % Basophils % (0.0-0.4) % Absolute Granulocytes (1.4-6.9) Basophils # (0-0.4) Sodium 142 (137-145) mmol/L Potassium 3.6 (3.5-5.1) mmol/L Chloride 110 H (98-107) mmol/L Carbon Dioxide 29 (22-30) mmol/L Anion Gap 6.9 (5-15) MEQ/L BUN 8 (7-17) mg/dL Creatinine 0.70 (0.52-1.04) mg/dL Estimated GFR > 60.0 ML/MIN Glucose 97 (74-106) mg/dL Lactic Acid 0.5 (0.4-2.0) Calcium 9.4 (8.4-10.2) mg/dL Total Bilirubin 0.50 (0.2-1.3) mg/dL AST 29 (14-36) U/L ALT 14 (0-35) U/L Alkaline Phosphatase 73 (38-126) U/L Serum Total Protein 7.7 (6.3-8.2) g/dL Albumin 4.6 (3.5-5.0) g/dL Amylase 167 H (30-110) U/L Lipase 231 (23-300) U/L Urine Color YELLOW (YELLOW) Urine Appearance CLEAR (CLEAR) Urine pH 5.0 (5-6) Ur Specific [place] 1.012 (1.005-1.025) Urine Protein NEGATIVE (Negative) Urine Ketones NEGATIVE (NEGATIVE) Urine Blood NEGATIVE (0-5) Srinath/ul Urine Nitrite NEGATIVE (NEGATIVE) Urine Bilirubin NEGATIVE (NEGATIVE) Urine Urobilinogen NEGATIVE (0-1) mg/dL Ur Leukocyte Esterase SMALL (NEGATIVE) Urine WBC (Auto) 11-15 (0-5) /HPF Urine RBC (Auto) 0-2 (0-2) /HPF U Epithel Cells (Auto) NONE (FEW) /HPF Urine Bacteria (Auto) NONE (NEGATIVE) /HPF Urine Mucus (Auto) SLIGHT (NEGATIVE) /HPF Urine Culture Reflexed YES (NO) Urine Glucose NEGATIVE (NEGATIVE) mg/dL 05/08/19 Range/Units 22:38 WBC 5.0 (4.0-10.5) K/mm3 RBC 4.17 (4.1-5.4) M/mm3 Hgb 12.3 (12.0-16.0) gm/dl Hct 39.6 (35-47) % MCV 95.0 (78-100) fl MCH 29.5 (26-32) pg MCHC 31.1 L (32-36) g/dl RDW 11.7 (11.5-14.0) % Plt Count 281 (150-450) K/mm3 MPV 10.4 H (6-9.5) fl Gran % 41.0 (36.0-66.0) % Eos # (Auto) 0.04 (0-0.5) Absolute Lymphs (auto) 2.37 (1.0-4.6) Absolute Monos (auto) 0.53 (0.0-1.3) Lymphocytes % 47.4 H (24.0-44.0) % Monocytes % 10.6 (0.0-12.0) % Eosinophils % 0.8 (0.00-5.0) % Basophils % 0.2 (0.0-0.4) % Absolute Granulocytes 2.05 (1.4-6.9) Basophils # 0.01 (0-0.4) Sodium (137-145) mmol/L Potassium (3.5-5.1) mmol/L Chloride (98-107) mmol/L Carbon Dioxide (22-30) mmol/L Anion Gap (5-15) MEQ/L BUN (7-17) mg/dL Creatinine (0.52-1.04) mg/dL Estimated GFR ML/MIN Glucose (74-106) mg/dL Lactic Acid (0.4-2.0) Calcium (8.4-10.2) mg/dL Total Bilirubin (0.2-1.3) mg/dL AST (14-36) U/L ALT (0-35) U/L Alkaline Phosphatase (38-126) U/L Serum Total Protein (6.3-8.2) g/dL Albumin (3.5-5.0) g/dL Amylase (30-110) U/L Lipase (23-300) U/L Urine Color (YELLOW) Urine Appearance (CLEAR) Urine pH (5-6) Ur Specific [place] (1.005-1.025) Urine Protein (Negative) Urine Ketones (NEGATIVE) Urine Blood (0-5) Srinath/ul Urine Nitrite (NEGATIVE) Urine Bilirubin (NEGATIVE) Urine Urobilinogen (0-1) mg/dL Ur Leukocyte Esterase (NEGATIVE) Urine WBC (Auto) (0-5) /HPF Urine RBC (Auto) (0-2) /HPF U Epithel Cells (Auto) (FEW) /HPF Urine Bacteria (Auto) (NEGATIVE) /HPF Urine Mucus (Auto) (NEGATIVE) /HPF Urine Culture Reflexed (NO) Urine Glucose (NEGATIVE) mg/dL - Progress Progress: improved, pain not gone completely, re-examined Progress Note: 05/09/19 01:57 ct abd/pelvis-no acute process. chronic diverticulosis Counseled pt/family regarding: lab results, diagnosis, need for follow-up, rad results - Departure Departure Disposition: Home Clinical Impression: UTI (urinary tract infection), Diverticulosis Condition: Stable Critical Care Time: No Referrals: MINOO BOSTON [Primary Care Provider] - Additional Instructions: drink plenty of fluids. follow up with dr. boston for persistent or recurrent symptoms Prescriptions: Cephalexin Mh 500 mg [Keflex 500 mg] 500 mg PO TID #21 capsule
[2019-05-08] MEDS ORDERED: Hydromorphone 1 mg/ml Ampule IV ONE (22:33)
[2019-05-08] MEDS ORDERED: Sodium Chloride 0.9% 1000 ML 1,000 ML IV STA (22:33)
[2019-05-08] MEDS ORDERED: Zofran 4 MG/2 ML VIAL IV ONE (22:33)
[2019-05-08] MEDS ORDERED: Zofran 4 MG/2 ML VIAL ONE (22:40)
[2019-05-08] MEDS ORDERED: Hydromorphone 1 mg/ml Ampule ONE (22:40)
[2019-05-08] MEDS ORDERED: Sodium Chloride 0.9% 1000 ML 1,000 ML ONE (22:41)
[2019-05-08 22:42] LABS: Absolute Neutrophil Ct (ANC) 2.05 (1.4-6.9); BASOPHIL % 0.2 % (0.0-0.4); Basophil (Absolute #) 0.01 (0-0.4); Eosinophil % 0.8 % (0.00-5.0); Eosinophil (Absolute #) 0.04 (0-0.5); Hematocrit 39.6 % (35-47); Hemoglobin 12.3 gm/dl (12.0-16.0); Lymphocyte (Absolute #) 2.37 (1.0-4.6); Lymphocytes % 47.4 % (24.0-44.0); Mean Corpuscular Hemoglobin 29.5 pg (26-32); Mean Corpuscular Hgb Concent. 31.1 g/dl (32-36); Mean Platelet Volume 10.4 fl (6-9.5); Monocyte (Absolute #) 0.53 (0.0-1.3); Monocytes % 10.6 % (0.0-12.0); Platelet Count 281 K/mm3 (150-450); Red Blood Count 4.17 M/mm3 (4.1-5.4); Red Cell Distribution Width 11.7 % (11.5-14.0)
[2019-05-08 22:50] LABS: Appearance CLEAR (CLEAR); Bilirubin NEGATIVE (NEGATIVE); Blood NEGATIVE Ery/ul (0-5); Glucose NEGATIVE (NEGATIVE); Ketones NEGATIVE (NEGATIVE); Leukocyte Esterase SMALL (NEGATIVE); Mucus SLIGHT /HPF (NEGATIVE); Nitrite NEGATIVE (NEGATIVE); Protein,Urine Dip NEGATIVE (Negative); RBC 0-2 /HPF (0-2); Specific Gravity 1.012 (1.005-1.025); Urobilinogen NEGATIVE mg/dL (0-1)
[2019-05-08 23:27] LABS: ALBUMIN 4.6 g/dL (3.5-5.0); ALKALINE PHOSPHATASE 73 U/L (38-126); AMYLASE 167 U/L (30-110); ANION GAP 6.9 MEQ/L (5-15); BLOOD UREA NITROGEN 8 mg/dL (7-17); CHLORIDE 110 mmol/L (98-107); Calcium 9.4 mg/dL (8.4-10.2); Carbon Dioxide 29 mmol/L (22-30); Glucose 97 mg/dL (74-106); LIPASE 231 U/L (23-300); Potassium 3.6 mmol/L (3.5-5.1); SGOT/AST 29 U/L (14-36); SGPT/ALT 14 U/L (0-35); SODIUM 142 mmol/L (137-145); Total Protein 7.7 g/dL (6.3-8.2)
[2019-05-09] MEDS ORDERED: KEFLEX 500 MG PO ONE (01:34)
[2019-05-09] MEDS ORDERED: KEFLEX 500 MG ONE (01:55)
[2019-05-09 02:33] VITALS: BP 101/62; PULSE 60; O2SAT 98
--- NOTE | 2019-05-09 08:48 | XRAY ---
Indication: Chronic abdomen pain. Myasthenia gravis. Lupus. Multiple contiguous axial images obtained through the abdomen and pelvis without contrast as ordered. Comparison: February 28, 2019 Lung bases again demonstrates bibasilar dependent atelectasis. No infiltrate or effusion. Heart is not enlarged. Noncontrasted stomach and bowel loops appear nonobstructed. Normal appendix. No free fluid/air. Stable scattered descending/sigmoid diverticulosis and 9 mm right lobe hepatic cyst. Uterus again not seen. Gallbladder is mildly distended without gallstones. No free fluid/air. Remaining liver, gallbladder, pancreas, spleen, adrenal glands, kidneys, ureters, bladder, and aorta appear unremarkable for noncontrast exam. Osseous structures intact. Stable tiny fatty umbilical hernia. Impression: 1. Stable hepatic cyst, colonic diverticulosis, and tiny fatty umbilical hernia. 2. Remaining CT abdomen/pelvis without contrast exam is negative. Comment: Preliminary interpretation was made by [facility]. No critical discrepancy. CTDI 11.11
== END 2019-05-09 02:40 | disposition home or self-care (01) ==
LOC: ED 22:04
DX: N39.0 Urinary tract infection, site not specified (principal); K57.90 Diverticulosis of intestine, part unspecified, without perforation or abscess without bleeding
CPT/HCPCS: 36000; 36415; 74176; 80053; 81001; 82150; 83605; 83690; 85025; 87086; 96360; 96374; 96375; 99284; J1170; J2405; A9270-GY

== ENCOUNTER 2019-05-25 20:22 | Emergency (ER) | payer OTHER ==
--- NOTE | 2019-05-25 20:52 | ERPHSYRPT ---
- History of Present Illness Time Seen by Provider: 05/25/19 20:51 Historian: patient Exam Limitations: clinical condition Patient Subjective Stated Complaint: PT ARRIVED TODAY WITH ABDOINAL PAIN THAT HAS BEEN GOING ON FOR SEVERAL WEEKS BUT BECOME WORSE TODAY. PT STATES SHE SAW AT NEUROLOGY HAD HIP AND BACK MRI. PT RATES PAIN IN BACK AND ABDOMEN 8/10 Triage Nursing Assessment: PT IS ALERT AND ORIENTED, RATES PAIN IN ABDOMEN AT 8/ 10 Physician History: Patient is here with chief complaint of midepigastric abdominal pain. Patient notes that she has had abdominal pain since her hospital admission in February for pancreatitis and feels that she never completely recovered. Patient notes that near the end of March or early April is when she began to decline again. Patient notes that her pain is in her midepigastric region and goes through to her back and she rates her pain at 8-10. patient has been nauseated. Patient is notwill able to take NSAIDS due to history of gastritis. Patient took Tylenol this a.m. Timing/Duration: week(s), worse, other (Pt had a hospitaliation for Pancreatitis in February and feels that she never got better all the way and began to worsen around the end of March until today when she is having a difficult time standing to walk. And) Activities at Onset: rest Quality: burning, sharpness (and) Abdominal Pain Onset Location: epigastric Pain Radiation: back Severity of Pain-Max: severe Severity of Pain-Current: severe (pt rates her pain at an 8/10 this evening. Pt notes that she had natural child and this is bad pain.) Modifying Factors: Improves With: movement Associated Symptoms: back, fatigue, vomiting, weakness Previous symptoms: same symptoms as today, recent hospitalization, other ( pancreatitis, IBS, Chron's, Fibromyalgia, Myasthenia Gravis) Allergies/Adverse Reactions: azithromycin [From Zithromax] Allergy (Severe, Verified 05/25/19 20:40) myasthenia crisis erythromycin base [Erythromycin Base] Allergy (Severe, Verified 05/25/19 20:40) myasthenia crisis levofloxacin [From Levaquin] Allergy (Severe, Verified 05/25/19 20:40) myasthenia crisis tramadol [From Ultram] Adverse Reaction (Verified 05/25/19 20:40) Rash Home Medications: Diazepam 5 mg [Valium 5 MG] 5 mg PO HS 08/10/13 [History] Mycophenolate Mofetil [Cellcept] 1,000 mg PO BID 03/21/13 [History] Isosorbide Mononitrate [Isosorbide Mononitrate ER] 60 mg PO DAILY 02/15/14 [ History] Pyridostigmine [place] [Pyridostigmine [place] ER] 180 mg PO BID 02/03/16 [ History] Duloxetine HCl [Cymbalta] 20 mg PO BID 03/13/18 [History] Acetaminophen 500 mg [Tylenol Extra Strength 500 mg] 1,000 mg PO Q4H PRN 03/01/19 [History] Diclofenac Sodium Gel [Voltaren GEL] 1 gm TOP BIDPRN PRN 03/01/19 [History ] Gabapentin [Neurontin] 1,200 mg PO BID 03/01/19 [History] Gabapentin [Neurontin] 600 mg PO BID 03/01/19 [History] Nitroglycerin 0.4 mg Tablet [Nitrostat 0.4 MG Tablet] 1 mg SL Q5MIN PRN MR X 3 PRN 03/01/19 [History] Pyridostigmine [place] [Mestinon] 60 mg PO BID 03/01/19 [History] Dicyclomine HCl 20 mg [Bentyl 20 mg] 20 mg PO TID 05/08/19 [History] Omeprazole Magnesium [Prilosec Otc] 20 mg PO DAILY 05/08/19 [History] Hx Tetanus, Diphtheria Vaccination/Date Given: Yes (up to date) Hx Influenza Vaccination/Date Given: Yes Hx Pneumococcal Vaccination/Date Given: No - Review of Systems Eyes: No Symptoms Ears, Nose, & Throat: No Symptoms Respiratory: No Symptoms Cardiac: No Symptoms Abdominal/Gastrointestinal: Abdominal Pain, Nausea, Vomiting Musculoskeletal: Back Pain Skin: No Symptoms Neurological: No Symptoms Psychological: No Symptoms - Past Medical History Pertinent Past Medical History: Yes Neurological History: Migraines ENT History: No Pertinent History Cardiac History: Arrhythmia, Other Respiratory History: No Pertinent History Endocrine Medical History: No Pertinent History Musculoskeletal History: Arthritis, Osteoarthritis, Osteoporosis, Other GI Medical History: Colitis, Diverticulosis History: No Pertinent History Psycho-Social History: No Pertinent History Female Reproductive Disorders: No Pertinent History Other Medical History: lupus,GASTRITIS. myasthenias gravis. FIBROMYALGIA. syncope arrythmia. mitral valve prolapse - Past Surgical History Past Surgical History: Yes Neuro Surgical History: No Pertinent History Cardiac: Other Respiratory: No Pertinent History Gastrointestinal: No Pertinent History Genitourinary: No Pertinent History Musculoskeletal: Other Female Surgical History: Hysterectomy Other Surgical History: tonsilectomy. cervical fusion. usually has to stay in hospital after receiving general anesthesia. HYSTERECTOMY - Social History Smoking Status: Never smoker Exposure to second hand smoke: No Drug Use: none Patient Lives Alone: No - Nursing Vital Signs Nursing Vital Signs: Initial Vital Signs Temperature 98.9 F 05/25/19 20:26 Pulse Rate 74 05/25/19 20:26 Respiratory Rate 18 05/25/19 20:26 Blood Pressure 133/83 05/25/19 20:26 O2 Sat by Pulse Oximetry 100 05/25/19 20:26 Pain Scale Pain Intensity 3 - Physical Exam General Appearance: no apparent distress, alert, thin, other (low energy) Eye Exam: PERRL/EOMI Neck Exam: normal inspection Respiratory Exam: normal breath sounds, lungs clear, airway intact Cardiovascular Exam: regular rate/rhythm, normal heart sounds, normal peripheral pulses, capillary refill <2 sec Gastrointestinal/Abdomen Exam: soft, normal bowel sounds, tenderness, No pulsatile mass, No splenomegaly Extremity Exam: normal inspection Neurologic Exam: alert, oriented x 3, cooperative, normal mood/affect Skin Exam: normal color, warm, dry, No petechiae, No jaundice SpO2: 100 Ordered Tests: Active Orders 24 hr Category Date Time Status IV Insertion STAT Care 05/25/19 21:10 Active NPO (ED) STAT Care 05/25/19 21:10 Active ABDOMEN AND PELVIS W CONTRAST [CT] Stat Exams 05/25/19 21:12 Taken AMYLASE Stat Lab 05/25/19 21:32 Completed CBC W DIFF Stat Lab 05/25/19 21:32 Completed CMP Stat Lab 05/25/19 21:32 Completed LIPASE Stat Lab 05/25/19 21:32 Completed Lactic Acid Stat Lab 05/25/19 21:35 Completed Occult Blood, Other Screening Stat Lab 05/25/19 23:52 Completed UA W/RFX UR CULTURE Stat Lab 05/25/19 21:33 Completed Medication Summary Discontinued Medications Generic Name Dose Route Start Last Admin Trade Name Freq PRN Reason Stop Dose Admin Famotidine 20 mg 05/26/19 00:01 05/26/19 00:15 Pepcid 20 Mg PO 05/26/19 00:02 20 mg STAT ONE Administration Famotidine Confirm 05/26/19 00:06 Pepcid 20 Mg Administered 05/26/19 00:07 Dose 20 mg .ROUTE .STK-MED ONE Lidocaine HCl 10 ml 05/25/19 21:10 05/25/19 21:42 Xylocaine Viscous 2% 20 Ml Cup PO 05/25/19 21:11 10 ml STAT ONE Administration Lidocaine HCl Confirm 05/25/19 21:35 Xylocaine Hcl Viscous * Administered 05/25/19 21:36 Dose 10 ml .ROUTE .STK-MED ONE Morphine Sulfate 4 mg 05/25/19 23:55 05/26/19 00:03 Morphine Sulfate 4 Mg Inj IV 05/25/19 23:56 4 mg STAT ONE Administration Morphine Sulfate Confirm 05/26/19 00:01 Morphine Sulfate 4 Mg Inj Administered 05/26/19 00:02 Dose 4 mg .ROUTE .STK-MED ONE Ondansetron HCl 4 mg 05/25/19 21:10 05/25/19 21:41 Zofran 4 Mg/2 Ml Vial IV 05/25/19 21:11 4 mg STAT ONE Administration Ondansetron HCl Confirm 05/25/19 21:34 Zofran 4 Mg/2 Ml Vial Administered 05/25/19 21:35 Dose 4 mg .ROUTE .STK-MED ONE Pantoprazole Sodium 40 mg 05/25/19 21:10 05/25/19 21:41 Protonix 40 Mg Iv IV 05/25/19 21:11 40 mg STAT ONE Administration Pantoprazole Sodium Confirm 05/25/19 21:34 Protonix 40 Mg Iv Administered 05/25/19 21:35 Dose 40 mg IV .STK-MED ONE Sucralfate 0 g 05/25/19 21:10 05/25/19 21:43 Carafate 1 Gm PO 05/25/19 21:11 1 g STAT ONE Administration Sucralfate Confirm 05/25/19 21:35 Carafate 1 Gm Administered 05/25/19 21:36 Dose 1 g PO .STK-MED ONE Lab/Rad Data: Laboratory Result Diagrams 05/25/19 21:32 05/25/19 21:32 Laboratory Results 05/25/19 05/25/19 05/25/19 Range/Units 23:52 21:35 21:33 WBC (4.0-10.5) K/mm3 RBC (4.1-5.4) M/mm3 Hgb (12.0-16.0) gm/dl Hct (35-47) % MCV (78-100) fl MCH (26-32) pg MCHC (32-36) g/dl RDW (11.5-14.0) % Plt Count (150-450) K/mm3 MPV (6-9.5) fl Gran % (36.0-66.0) % Eos # (Auto) (0-0.5) Absolute Lymphs (auto) (1.0-4.6) Absolute Monos (auto) (0.0-1.3) Lymphocytes % (24.0-44.0) % Monocytes % (0.0-12.0) % Eosinophils % (0.00-5.0) % Basophils % (0.0-0.4) % Absolute Granulocytes (1.4-6.9) Basophils # (0-0.4) Sodium (137-145) mmol/L Potassium (3.5-5.1) mmol/L Chloride (98-107) mmol/L Carbon Dioxide (22-30) mmol/L Anion Gap (5-15) MEQ/L BUN (7-17) mg/dL Creatinine (0.52-1.04) mg/dL Estimated GFR ML/MIN Glucose (74-106) mg/dL Lactic Acid 0.7 (0.4-2.0) Calcium (8.4-10.2) mg/dL Total Bilirubin (0.2-1.3) mg/dL AST (14-36) U/L ALT (0-35) U/L Alkaline Phosphatase (38-126) U/L Serum Total Protein (6.3-8.2) g/dL Albumin (3.5-5.0) g/dL Amylase (30-110) U/L Lipase (23-300) U/L Urine Color YELLOW (YELLOW) Urine Appearance CLEAR (CLEAR) Urine pH 5.0 (5-6) Ur Specific [place] 1.009 (1.005-1.025) Urine Protein NEGATIVE (Negative) Urine Ketones NEGATIVE (NEGATIVE) Urine Blood NEGATIVE (0-5) Srinath/ul Urine Nitrite NEGATIVE (NEGATIVE) Urine Bilirubin NEGATIVE (NEGATIVE) Urine Urobilinogen NEGATIVE (0-1) mg/dL Ur Leukocyte Esterase TRACE (NEGATIVE) Urine WBC (Auto) 0-2 (0-5) /HPF Urine RBC (Auto) NONE (0-2) /HPF U Epithel Cells (Auto) NONE (FEW) /HPF Urine Bacteria (Auto) NONE SEEN (NEGATIVE) /HPF Urine Mucus (Auto) SLIGHT (NEGATIVE) /HPF Urine Culture Reflexed NO (NO) Urine Glucose NEGATIVE (NEGATIVE) mg/dL Stool Occult Blood NEGATIVE (Negative) 05/25/19 05/25/19 Range/Units 21:32 21:32 WBC 5.4 (4.0-10.5) K/mm3 RBC 4.05 L (4.1-5.4) M/mm3 Hgb 11.8 L (12.0-16.0) gm/dl Hct 37.8 (35-47) % MCV 93.3 (78-100) fl MCH 29.1 (26-32) pg MCHC 31.2 L (32-36) g/dl RDW 11.4 L (11.5-14.0) % Plt Count 233 (150-450) K/mm3 MPV 9.8 H (6-9.5) fl Gran % 48.9 (36.0-66.0) % Eos # (Auto) 0.04 (0-0.5) Absolute Lymphs (auto) 2.14 (1.0-4.6) Absolute Monos (auto) 0.55 (0.0-1.3) Lymphocytes % 39.9 (24.0-44.0) % Monocytes % 10.3 (0.0-12.0) % Eosinophils % 0.7 (0.00-5.0) % Basophils % 0.2 (0.0-0.4) % Absolute Granulocytes 2.62 (1.4-6.9) Basophils # 0.01 (0-0.4) Sodium 143 (137-145) mmol/L Potassium 3.9 (3.5-5.1) mmol/L Chloride 111 H (98-107) mmol/L Carbon Dioxide 30 (22-30) mmol/L Anion Gap 5.4 (5-15) MEQ/L BUN 9 (7-17) mg/dL Creatinine 0.66 (0.52-1.04) mg/dL Estimated GFR > 60.0 ML/MIN Glucose 105 (74-106) mg/dL Lactic Acid (0.4-2.0) Calcium 9.8 (8.4-10.2) mg/dL Total Bilirubin 0.50 (0.2-1.3) mg/dL AST 25 (14-36) U/L ALT 15 (0-35) U/L Alkaline Phosphatase 57 (38-126) U/L Serum Total Protein 7.5 (6.3-8.2) g/dL Albumin 4.5 (3.5-5.0) g/dL Amylase 116 H (30-110) U/L Lipase 102 (23-300) U/L Urine Color (YELLOW) Urine Appearance (CLEAR) Urine pH (5-6) Ur Specific [place] (1.005-1.025) Urine Protein (Negative) Urine Ketones (NEGATIVE) Urine Blood (0-5) Srinath/ul Urine Nitrite (NEGATIVE) Urine Bilirubin (NEGATIVE) Urine Urobilinogen (0-1) mg/dL Ur Leukocyte Esterase (NEGATIVE) Urine WBC (Auto) (0-5) /HPF Urine RBC (Auto) (0-2) /HPF U Epithel Cells (Auto) (FEW) /HPF Urine Bacteria (Auto) (NEGATIVE) /HPF Urine Mucus (Auto) (NEGATIVE) /HPF Urine Culture Reflexed (NO) Urine Glucose (NEGATIVE) mg/dL Stool Occult Blood (Negative) - Progress Progress: improved Progress Note: 00:16 Pt's labs reviewed and CT reviewed - Impression: + small bowel enteritis. Amylase 116. Pt feeling some better with pain level down from 8/10 to 5/10. Pt still having pain. Pt notes that it is painful to stand up. - Departure Departure Disposition: Home Clinical Impression: Enteritis, Abdominal pain, chronic, epigastric Condition: Good Critical Care Time: No Referrals: MINOO ESPINAL [Primary Care Provider] - Additional Instructions: Avoid caffiene and highly acidic foods. Follow up with a soloist dancer of your choice. Take pepcid 20 mg's 1 every 12 hours and then Protonix instead of prilosec daily. May also take zofran for nausea and [place] for pain not controlled with tylenol. Return to the ER with any emergent problems. Plan of Treatment: Avoid caffiene and highly acidic foods. Follow up with a soloist dancer of your choice. Take pepcid 20 mg's 1 every 12 hours and then Protonix instead of prilosec daily. May also take zofran for nausea and [place] for pain not controlled with tylenol. Return to the ER with any emergent problems. Prescriptions: Hydrocodone/APAP 5-325 Tab^^^ [[place] 5-325 Tablet^^^] 1 tab PO Q6HPRN PRN #10 tablet MDD 6 PRN Reason: Pain Famotidine 20 mg [Pepcid 20 MG] 20 mg PO BID #20 tablet Ondansetron HCl [Zofran] 4 mg PO TID PRN #10 tablet PRN Reason: Nausea/Vomiting PANTOPRAZOLE 40 mg Tablet [Protonix 40MG Tablet] 40 mg PO QAM 10 Days tab
[2019-05-25] MEDS ORDERED: Carafate 1 GM PO ONE ×2 (21:10→21:35)
[2019-05-25] MEDS ORDERED: XYLOCAINE VISCOUS 2% 20 ML CUP PO ONE (21:10)
[2019-05-25] MEDS ORDERED: PROTONIX 40 MG IV IV ONE ×2 (21:10→21:34)
[2019-05-25] MEDS ORDERED: Zofran 4 MG/2 ML VIAL IV ONE (21:10)
[2019-05-25] MEDS ORDERED: Zofran 4 MG/2 ML VIAL ONE (21:34)
[2019-05-25 21:35] LABS: Absolute Neutrophil Ct (ANC) 2.62 (1.4-6.9); BASOPHIL % 0.2 % (0.0-0.4); Basophil (Absolute #) 0.01 (0-0.4); Eosinophil % 0.7 % (0.00-5.0); Eosinophil (Absolute #) 0.04 (0-0.5); Hematocrit 37.8 % (35-47); Hemoglobin 11.8 gm/dl (12.0-16.0); Lymphocyte (Absolute #) 2.14 (1.0-4.6); Lymphocytes % 39.9 % (24.0-44.0); Mean Cell Volume 93.3 fl (78-100); Mean Corpuscular Hemoglobin 29.1 pg (26-32); Mean Corpuscular Hgb Concent. 31.2 g/dl (32-36); Mean Platelet Volume 9.8 fl (6-9.5); Monocyte (Absolute #) 0.55 (0.0-1.3); Monocytes % 10.3 % (0.0-12.0); Neutrophil % 48.9 % (36.0-66.0); Platelet Count 233 K/mm3 (150-450); Red Blood Count 4.05 M/mm3 (4.1-5.4); Red Cell Distribution Width 11.4 % (11.5-14.0); White Blood Count 5.4 K/mm3 (4.0-10.5)
[2019-05-25] MEDS ORDERED: XYLOCAINE HCl Viscous ONE (21:35)
[2019-05-25 21:39] LABS: Appearance CLEAR (CLEAR); Bilirubin NEGATIVE (NEGATIVE); Blood NEGATIVE Ery/ul (0-5); Glucose NEGATIVE (NEGATIVE); Ketones NEGATIVE (NEGATIVE); Leukocyte Esterase TRACE (NEGATIVE); Mucus SLIGHT /HPF (NEGATIVE); Nitrite NEGATIVE (NEGATIVE); Protein,Urine Dip NEGATIVE (Negative); Specific Gravity 1.009 (1.005-1.025); Urobilinogen NEGATIVE mg/dL (0-1); WBC 0-2 /HPF (0-5)
[2019-05-25 21:46] LABS: Bacteria NONE SEEN /HPF (NEGATIVE)
[2019-05-25 21:46] LABS: ALBUMIN 4.5 g/dL (3.5-5.0); ALKALINE PHOSPHATASE 57 U/L (38-126); AMYLASE 116 U/L (30-110); ANION GAP 5.4 MEQ/L (5-15); BLOOD UREA NITROGEN 9 mg/dL (7-17); CHLORIDE 111 mmol/L (98-107); Calcium 9.8 mg/dL (8.4-10.2); Carbon Dioxide 30 mmol/L (22-30); Creatinine 1 0.66 mg/dL (0.52-1.04); Glucose 105 mg/dL (74-106); LIPASE 102 U/L (23-300); Potassium 3.9 mmol/L (3.5-5.1); SGOT/AST 25 U/L (14-36); SGPT/ALT 15 U/L (0-35); SODIUM 143 mmol/L (137-145); Total Protein 7.5 g/dL (6.3-8.2)
[2019-05-25 23:04] VITALS: O2SAT 100
[2019-05-25] MEDS ORDERED: MORPHINE SULFATE 4 MG INJ IV ONE (23:55)
[2019-05-26] MEDS ORDERED: Pepcid 20 MG PO ONE (00:01)
[2019-05-26] MEDS ORDERED: MORPHINE SULFATE 4 MG INJ ONE (00:01)
[2019-05-26] MEDS ORDERED: Pepcid 20 MG ONE (00:06)
[2019-05-26 00:46] VITALS: BP 111/68; PULSE 73
--- NOTE | 2019-05-26 09:24 | XRAY ---
Indication: Colonic abdomen pain. Elevated amylase. History lupus, gastritis, colitis, diverticulosis, and myasthenia gravis. Multiple contiguous axial images obtained through the abdomen and pelvis using 80 cc Isovue 370 contrast only. Comparison: Noncontrast exam May 08, 2019. Lung bases again demonstrates bibasilar dependent atelectasis, less than before. No infiltrate or effusion. Heart is not enlarged. Noncontrasted stomach and bowel loops remain nonobstructed. Small bowel loops mildly fluid distended with some fluid leveling and also left mid abdomen small bowel wall enhancement suggesting enteritis. Appendix not seen. Patient reports hysterectomy. No free fluid/air. Stable descending/sigmoid diverticulosis and hepatic cysts. 1 cm right mid renal cortical cyst not seen on previous noncontrast exam. Remaining liver, gallbladder, pancreas, spleen, adrenal glands, kidneys, ureters, bladder, and aorta appear unremarkable. No pathologic retroperitoneal lymphadenopathy. Osseous structures intact. Impression: 1. Mild fluid distended small bowel loops with left mid abdomen small bowel wall enhancement suggestive of enteritis. 2. Incidental colonic diverticulosis, hepatic cysts, and right renal cyst. Comment: Preliminary interpretation was made by [facility]. No discrepancy. CT DI 10.79
== END 2019-05-26 01:10 | disposition home or self-care (01) ==
LOC: ED 20:22
DX: K52.9 Noninfective gastroenteritis and colitis, unspecified (principal); R10.13 Epigastric pain; Z79.899 Other long term (current) drug therapy; R11.2 Nausea with vomiting, unspecified
CPT/HCPCS: 36000; 36415; 74177; 80053; 81001; 82150; 82272; 83605; 83690; 85025; 96374; 96375; 99284; J2270; J2405; A9270-GY

== ENCOUNTER 2019-12-23 12:35 | Emergency (ER) | payer OTHER ==
--- NOTE | 2019-12-23 12:40 | ERPHSYRPT ---
- History of Present Illness Time Seen by Provider: 12/23/19 12:40 Source: patient Exam Limitations: no limitations Physician History: This is a 54-year-old female who was trying to break up a fight between 2 dogs at her home. She twisted her ankle and her accidentally stepped on her ankle. She is having pain. She is able to walk on it but it does hurt. The lateral portion of her left ankle has the most pain. Method of Injury: twisted Occurred: just prior to arrival Quality: constant, aching Severity of Pain-Max: moderate Severity of Pain-Current: moderate Lower Extremities Pain: ankle: right Modifying Factors: Improves With: movement Associated Symptoms: other (Hurts to bear weight) Allergies/Adverse Reactions: azithromycin [From Zithromax] Allergy (Severe, Verified 12/23/19 12:38) myasthenia crisis erythromycin base [Erythromycin Base] Allergy (Severe, Verified 12/23/19 12:38) myasthenia crisis levofloxacin [From Levaquin] Allergy (Severe, Verified 12/23/19 12:38) myasthenia crisis tramadol [From Ultram] Adverse Reaction (Intermediate, Verified 12/23/19 12:38) Rash Home Medications: Diazepam 5 mg [Valium 5 MG] 5 mg PO HS 03/21/13 [History] Mycophenolate Mofetil [Cellcept] 1,000 mg PO BID 03/21/13 [History] Isosorbide Mononitrate [Isosorbide Mononitrate ER] 60 mg PO DAILY 02/15/14 [ History] Pyridostigmine [place] [Pyridostigmine [place] ER] 180 mg PO BID 02/03/16 [ History] Duloxetine HCl [Cymbalta] 20 mg PO BID 03/13/18 [History] Diclofenac Sodium Gel [Voltaren GEL] 1 gm TOP BIDPRN PRN 03/01/19 [History ] Gabapentin [Neurontin] 600 mg PO Q4H PRN 03/01/19 [History] Nitroglycerin 0.4 mg Tablet [Nitrostat 0.4 MG Tablet] 1 mg SL Q5MIN PRN MR X 3 PRN 03/01/19 [History] Pyridostigmine [place] [Mestinon] 60 mg PO BID 03/01/19 [History] Dicyclomine HCl 20 mg [Bentyl 20 mg] 20 mg PO TID 05/08/19 [History] Omeprazole Magnesium [Prilosec Otc] 20 mg PO DAILY 05/08/19 [History] Hx Tetanus, Diphtheria Vaccination/Date Given: Yes (up to date) Hx Influenza Vaccination/Date Given: Yes Hx Pneumococcal Vaccination/Date Given: No Travel Risk - International Travel Have you traveled outside of the country in past 3 weeks: No Have you or anyone close to you been diagnosed with or: No Do your reside in a community with a known COVID-19 case?: Yes If Yes where:: [facility] - Coronavirus Screening Has patient experienced Coronavirus symptoms: No - Review of Systems Constitutional: No Symptoms Eyes: No Symptoms Ears, Nose, & Throat: No Symptoms Respiratory: No Symptoms Cardiac: No Symptoms Abdominal/Gastrointestinal: No Symptoms Genitourinary Symptoms: No Symptoms Musculoskeletal: Injury (Left ankle) Skin: No Symptoms Neurological: No Symptoms Psychological: No Symptoms Endocrine: No Symptoms Hematologic/Lymphatic: No Symptoms Immunological/Allergic: No Symptoms All Other Systems: Reviewed and Negative - Past Medical History Pertinent Past Medical History: Yes Neurological History: Migraines ENT History: No Pertinent History Cardiac History: Arrhythmia, Other Respiratory History: No Pertinent History Endocrine Medical History: No Pertinent History Musculoskeletal History: Arthritis, Osteoarthritis, Osteoporosis, Other GI Medical History: Colitis, Diverticulosis History: No Pertinent History Psycho-Social History: No Pertinent History Female Reproductive Disorders: No Pertinent History Other Medical History: lupus,GASTRITIS. myasthenias gravis. FIBROMYALGIA. syncope arrythmia. mitral valve prolapse - Past Surgical History Past Surgical History: Yes Neuro Surgical History: No Pertinent History Cardiac: Other Respiratory: No Pertinent History Gastrointestinal: No Pertinent History Genitourinary: No Pertinent History Musculoskeletal: Other Female Surgical History: Hysterectomy Other Surgical History: tonsilectomy. cervical fusion. usually has to stay in hospital after receiving general anesthesia. HYSTERECTOMY - Social History Smoking Status: Never smoker Exposure to second hand smoke: No Drug Use: none Patient Lives Alone: No - Nursing Vital Signs Nursing Vital Signs: Initial Vital Signs Temperature 98 F 12/23/19 12:35 Pulse Rate 72 12/23/19 12:35 Respiratory Rate 18 12/23/19 12:35 Blood Pressure 113/61 12/23/19 12:35 O2 Sat by Pulse Oximetry 98 12/23/19 12:35 Pain Scale Pain Intensity 8 - Physical Exam Eyes, Ears, Nose, Throat Exam: normal ENT inspection, moist mucous membranes Neck Exam: normal inspection, non-tender, supple, full range of motion Cardiovascular/Respiratory Exam: No chest non-tender Gastrointestinal/Abdominal Exam: No non-tender Back Exam: normal inspection, normal range of motion, No CVA tenderness, No vertebral tenderness Hips Exam: bilateral: non-tender, normal inspection, normal range of motion, no evidence of injury Legs Exam: bilateral leg: non-tender, normal inspection, normal range of motion , no evidence of injury Knees Exam: bilateral knee: non-tender, normal inspection, normal range of motion, no evidence of injury Ankle Exam: right ankle: soft tissue tenderness, swelling (Lateral aspect), left ankle: non-tender, normal inspection, normal range of motion, no evidence of injury Foot Exam: bilateral foot: non-tender, normal inspection, normal range of motion , no evidence of injury Neuro/Tendon Exam: normal sensation, normal motor functions, normal tendon functions, responds to pain, no evidence tendon injury Mental Status Exam: alert, oriented x 3, cooperative Skin Exam: normal color, warm, dry SpO2 Interpretation: normal O2 Delivery: Room Air Procedures - Splinting Location of Splint: Left, Ankle Type of Splint: Orthoglass Short Leg Splint Splint Applied By: ED Nurse Pre-Proc Neuro Vasc Exam: normal Post-Proc Neuro Vasc Exam: neurovascular intact - Course Nursing assessment & vital signs reviewed: Yes Ordered Tests: Active Orders 24 hr Category Date Time Status Crutches STAT Care 12/23/19 13:38 Ordered Splint STAT Care 12/23/19 13:38 Ordered ANKLE (3 VIEWS) Stat Exams 12/23/19 12:46 Completed - Progress Progress: unchanged Progress Note: 12/23/19 13:34 Left ankle x-ray shows a new nondisplaced cortical fracture at the tip of the lateral malleolus with soft tissue swelling present Counseled pt/family regarding: diagnosis, need for follow-up, rad results - Departure Departure Disposition: Home Clinical Impression: Closed left ankle fracture Condition: Stable Critical Care Time: No Referrals: MINOO ESPINAL [Primary Care Provider] - [facility] [id number] Additional Instructions: Nonweightbearing. Ice pack to site 3 times a day for the next 48 hours. Follow -up with [facility] orthopedic clinic tomorrow between the hours of 8 AM and 11 AM for further management. Prescriptions: Oxycodone HCl/Acetaminophen [Percocet 5-325 mg Tablet] 1 each PO Q8H PRN PRN #6 tablet MDD 3 PRN Reason: Pain
[2019-12-23 13:04] VITALS: O2SAT 98
--- NOTE | 2019-12-23 13:28 | XRAY ---
Indication: Pain following injury. Comparison: January 21, 2009. 3 view left ankle demonstrates new nondisplaced cortical fracture tip lateral malleolus with soft tissue swelling. Again incidental small plantar heel spur. Old distal 5th metatarsal fracture not previously image. Remaining left ankle unremarkable.
[2019-12-23] MEDS ORDERED: PERCOCET TABLET 5/325MG PO STA (13:39)
[2019-12-23] MEDS ORDERED: PERCOCET TABLET 5/325MG ONE (14:13)
[2019-12-23 14:31] VITALS: BP 118/80; PULSE 80
== END 2019-12-23 15:13 | disposition home or self-care (01) ==
LOC: ED 12:35
DX: S82.892A Other fracture of left lower leg, initial encounter for closed fracture (principal); X50.1XXA Overexertion from prolonged static or awkward postures, initial encounter; W50.0XXA Accidental hit or strike by another person, initial encounter; Y93.K9 Activity, other involving animal care; Y92.89 Other specified places as the place of occurrence of the external cause
CPT/HCPCS: 29515; 73610; 99284; A9270-GY

== ENCOUNTER 2021-06-16 22:12 | Emergency (ER) | payer BC ==
[2013-03-21 11:04] VITALS: BP 109/76
--- NOTE | 2021-06-16 23:11 | ERPHSYRPT ---
- History of Present Illness Source: patient Exam Limitations: no limitations Patient Subjective Stated Complaint: "I'm running fevers." Triage Nursing Assessment: Patient reported initial onset of low grade fever on saturday06/11/21 with Tmax at home being reported above 100F. She was seen at on 06/12/21 and prescribed amox/clav for suspected ear infection. Reported onset of bilateral flank pain and neck pain that started 06/15/21. She reported treating at home with Tylenol and attempting to stay hydrated. Denied chest pain, abdominal pain, dizziness, dyspnea, dysuira, frequency, or urgency. Pupils 3mm bilateral. Oral mucosa pink/moist without ulcerations/lesions. Neck supple non-tender without lymphadenopathy. Symmetrical chest expansion. heart tones S1/S2 RRR tachycardic. Lungs vesicular without adventitious lung sounds. Peripheral pulses +2 bilateral. Right sided CVA tenderness. No noted dependent edema. Gait steady without complications. Physician History: 55 yo wf w multiple medical problems presents w fever x 5 days. Pt seen in clinic w neg CV19 and started on amoxil for OM. She denies cough/coryza/N/V but has had mild diarrhea and dysuria. Timing/Duration: other (5 days) Associated Symptoms: headache, No abdominal pain, No chest pain, No confusion, No cough, No diaphoresis, No muscle aches, No nausea/vomiting, No rash, No rhinorrhea, No shortness of breath, No sore throat, No stiff neck, No syncope, No weakness Allergies/Adverse Reactions: azithromycin [From Zithromax] Allergy (Severe, Verified 06/16/21 22:28) myasthenia crisis erythromycin base [Erythromycin Base] Allergy (Severe, Verified 06/16/21 22:28) myasthenia crisis levofloxacin [From Levaquin] Allergy (Severe, Verified 06/16/21 22:28) myasthenia crisis tramadol [From Ultram] Adverse Reaction (Intermediate, Verified 06/16/21 22:28) Rash Home Medications: Diazepam 5 mg [Valium 5 MG] 5 mg PO HS 03/21/13 [History] Mycophenolate Mofetil [Cellcept] 1,000 mg PO BID 03/21/13 [History] Isosorbide Mononitrate [Isosorbide Mononitrate ER] 60 mg PO DAILY 02/15/14 [History] Pyridostigmine [place] [Pyridostigmine [place] ER] 180 mg PO BID 02/03/16 [History] Duloxetine HCl [Cymbalta] 20 mg PO BID 03/13/18 [History] Diclofenac Sodium Gel [Voltaren GEL] 1 gm TOP BIDPRN PRN 03/01/19 [History] Gabapentin [Neurontin] 600 mg PO Q4H PRN 03/01/19 [History] Nitroglycerin 0.4 mg Tablet [Nitrostat 0.4 MG Tablet] 1 mg SL Q5MIN PRN MR X 3 PRN 03/01/19 [History] Pyridostigmine [place] [Mestinon] 60 mg PO BID 03/01/19 [History] Dicyclomine HCl 20 mg [Bentyl 20 mg] 20 mg PO TID 05/08/19 [History] Alendronate Sodium 70 mg [Fosamax 70 MG] 70 mg PO WEEKLY 06/16/21 [History] Amoxicillin/Potassium Clav [Augmentin 875-125 Tablet] 1 tab PO BID 06/16/21 [History] Cyanocobalamin/Folic Acid [Vitamin J66-Tohed Acid Tablet] 1 tab SL DAILY 06/16/21 [History] Ergocalciferol (Vitamin D2) [Vitamin D2] 1.25 mg PO WEEKLY 06/16/21 [History] Hx Tetanus, Diphtheria Vaccination/Date Given: Yes (up to date) Hx Influenza Vaccination/Date Given: No Hx Pneumococcal Vaccination/Date Given: No Travel Risk - International Travel Have you traveled outside of the country in past 3 weeks: No - Coronavirus Screening Are you exhibiting any of the following symptoms?: Yes Symptoms: Fever Close contact with a COVID-19 positive Pt in past 14-21 Days: No - Vaccine Status Have you recieved a Covid-19 vaccination: Yes Projection Engineer: Moderna - Vaccination Dates Date of 2cond Vaccination (if applicable): 11/2020 - Review of Systems Constitutional: No Symptoms, Fever, Chills, Fatigue Eyes: No Symptoms Ears, Nose, & Throat: No Symptoms Respiratory: No Symptoms Cardiac: No Symptoms Abdominal/Gastrointestinal: No Symptoms, Diarrhea Genitourinary Symptoms: No Symptoms, Dysuria Musculoskeletal: No Symptoms Skin: No Symptoms Neurological: No Symptoms, Headache Psychological: No Symptoms Endocrine: No Symptoms Hematologic/Lymphatic: No Symptoms Immunological/Allergic: No Symptoms - Past Medical History Pertinent Past Medical History: Yes Neurological History: Migraines ENT History: No Pertinent History Cardiac History: Arrhythmia, Other Respiratory History: No Pertinent History Endocrine Medical History: No Pertinent History Musculoskeletal History: Arthritis, Osteoarthritis, Osteoporosis, Other GI Medical History: Colitis, Diverticulosis History: No Pertinent History Psycho-Social History: No Pertinent History Female Reproductive Disorders: No Pertinent History Other Medical History: lupus,GASTRITIS. myasthenias gravis. FIBROMYALGIA. syncope arrythmia. mitral valve prolapse - Past Surgical History Past Surgical History: Yes Neuro Surgical History: No Pertinent History Cardiac: Other Respiratory: No Pertinent History Gastrointestinal: No Pertinent History Genitourinary: No Pertinent History Musculoskeletal: Other Female Surgical History: Hysterectomy Other Surgical History: tonsilectomy. cervical fusion. usually has to stay in hospital after receiving general anesthesia. HYSTERECTOMY (total) - Social History Smoking Status: Never smoker Exposure to second hand smoke: No Drug Use: none Patient Lives Alone: No - Female History Hx Now: No - Nursing Vital Signs Nursing Vital Signs: Initial Vital Signs Temperature 103.3 F 06/16/21 22:13 Pulse Rate 104 H 06/16/21 22:13 Respiratory Rate 18 06/16/21 22:13 Blood Pressure 123/68 06/16/21 22:13 O2 Sat by Pulse Oximetry 98 06/16/21 22:13 Pain Scale Pain Intensity 0 Febrile/tachycardia - Physical Exam General Appearance: no apparent distress Eye Exam: PERRL/EOMI, eyes nml inspection ENT Exam: normal ENT inspection, no apparent trauma, TMs normal, pharynx normal Neck Exam: normal inspection, non-tender, supple, full range of motion, trachea midline, No stiff neck, No Brudzinski's sign, No carotid bruit, No Kernig's sign Respiratory Exam: no respiratory distress, crackles/rales (Rales L base) Cardiovascular/Chest Exam: tachycardia, No murmur Gastrointestinal/Abdominal Exam: soft, non tender Extremity Exam: non-tender, normal range of motion, normal inspection, normal capillary refill Neurologic Exam: alert, oriented x 3, cooperative, auriculotherapist II-XII nml as tested, no rmal mood/affect Skin Exam: normal color, warm, dry Lymphatic: No adenopathy SpO2 Interpretation: normal SpO2: 98 O2 Delivery: Room Air - Course Nursing assessment & vital signs reviewed: Yes - Radiology Exams Chest X-ray Interpretation: Interpreted by me ([email or web address]) - CT Exams Chest CT Interpretation: Tele-radiologist Report (Minimal bibasilar atelectasis/LLL nodule) Ordered Tests: Active Orders 24 hr Category Date Time Status CHEST 1 VIEW (PORTABLE) Stat Exams 06/16/21 23:06 Taken CHEST WITHOUT CONTRAST [CT] Stat Exams 06/17/21 02:28 Taken AMYLASE Stat Lab 06/16/21 22:55 Completed CBC W DIFF Stat Lab 06/16/21 22:55 Completed CMP Stat Lab 06/16/21 22:55 Completed LIPASE Stat Lab 06/16/21 22:55 Completed Lactic Acid Stat Lab 06/16/21 22:53 Completed Manual Differential NC Stat Lab 06/16/21 22:55 Completed TROPONIN Q3H Lab 06/17/21 03:16 Completed TROPONIN Q3H Lab 06/17/21 06:15 Ordered TROPONIN Q3H Lab 06/17/21 09:15 Ordered TROPONIN Q3H Lab 06/17/21 12:15 Ordered TROPONIN Q3H Lab 06/17/21 15:15 Ordered UA W/RFX UR CULTURE Stat Lab 06/16/21 22:54 Completed Medication Summary Discontinued Medications Generic Name Dose Route Start Last Admin Trade Name Freq PRN Reason Stop Dose Admin Acetaminophen 1,000 mg 06/16/21 23:21 Acetaminophen 500 Mg Tablet PO 07/16/21 23:20 Q4H PRN PRN HEADACHE Acetaminophen 1,000 mg 06/16/21 23:32 06/16/21 23:35 Acetaminophen 500 Mg Tablet PO 06/16/21 23:33 1,000 mg STAT STA Administration Acetaminophen Confirm 06/16/21 23:34 Acetaminophen 500 Mg Tablet Administered 06/16/21 23:35 Dose 1,000 mg .ROUTE .STK-MED ONE Lab/Rad Data: Laboratory Result Diagrams 06/16/21 22:55 06/16/21 22:55 Laboratory Results 06/17/21 06/17/21 06/17/21 Range/Units 03:16 00:40 00:13 WBC (4.0-10.5) K/mm3 RBC (4.1-5.4) M/mm3 Hgb (12.0-16.0) gm/dl Hct (35-47) % MCV (78-100) fl MCH (26-32) pg MCHC (32-36) g/dl RDW (11.5-14.0) % Plt Count (150-450) K/mm3 MPV (7.5-11.0) fl Gran % (36.0-66.0) % Eos # (Auto) (0-0.5) Absolute Lymphs (auto) (1.0-4.6) Absolute Monos (auto) (0.0-1.3) Lymphocytes % (24.0-44.0) % Monocytes % (0.0-12.0) % Eosinophils % (0.00-5.0) % Basophils % (0.0-0.4) % Absolute Granulocytes (1.4-6.9) Segmented Neutrophils (36.0-66.0) % Lymphocytes (Manual) (24-44) % Monocytes (Manual) (0.0-12.0) % Eosinophils (Manual) (0.00-3.0) % Basophils # (0-0.4) Platelet Estimate (NORMAL) RBC Morphology Sodium (137-145) mmol/L Potassium (3.5-5.1) mmol/L Chloride (98-107) mmol/L Carbon Dioxide (22-30) mmol/L Anion Gap (5-15) MEQ/L BUN (7-17) mg/dL Creatinine (0.52-1.04) mg/dL Estimated GFR ML/MIN Glucose (74-106) mg/dL Lactic Acid 0.7 (0.4-2.0) Calcium (8.4-10.2) mg/dL Total Bilirubin (0.2-1.3) mg/dL AST (14-36) U/L ALT (0-35) U/L Alkaline Phosphatase (38-126) U/L Troponin I < 0.012 (0.000-0.034) ng/mL Serum Total Protein (6.3-8.2) g/dL Albumin (3.5-5.0) g/dL Amylase (30-110) U/L Lipase (23-300) U/L Urine Color (YELLOW) Urine Appearance (CLEAR) Urine pH (5-6) Ur Specific Lexa (1.005-1.025) Urine Protein (Negative) Urine Ketones (NEGATIVE) Urine Blood (0-5) Srinath/ul Urine Nitrite (NEGATIVE) Urine Bilirubin (NEGATIVE) Urine Urobilinogen (0-1) mg/dL Ur Leukocyte Esterase (NEGATIVE) Urine WBC (Auto) (0-5) /HPF Urine RBC (Auto) (0-2) /HPF U Epithel Cells (Auto) (FEW) /HPF Urine Bacteria (Auto) (NEGATIVE) /HPF Urine Culture Reflexed (NO) Urine Glucose (NEGATIVE) mg/dL Influenza Type A Ag NEGATIVE (NEGATIVE) Influenza Type B Ag NEGATIVE (NEGATIVE) RSV (PCR) NEGATIVE (Negative) SARS-CoV-2 (PCR) NEGATIVE (NEGATIVE) 06/16/21 06/16/21 06/16/21 Range/Units 22:55 22:55 22:55 WBC 1.9 L* (4.0-10.5) K/mm3 RBC 4.23 (4.1-5.4) M/mm3 Hgb 11.7 L (12.0-16.0) gm/dl Hct 38.1 (35-47) % MCV 90.1 (78-100) fl MCH 27.7 (26-32) pg MCHC 30.7 L (32-36) g/dl RDW 12.3 (11.5-14.0) % Plt Count 155 (150-450) K/mm3 MPV 10.5 (7.5-11.0) fl Gran % 56.5 (36.0-66.0) % Eos # (Auto) 0 (0-0.5) Absolute Lymphs (auto) 0.49 L (1.0-4.6) Absolute Monos (auto) 0.33 (0.0-1.3) Lymphocytes % 25.7 (24.0-44.0) % Monocytes % 17.3 H (0.0-12.0) % Eosinophils % 0.0 (0.00-5.0) % Basophils % 0.5 (0.0-0.4) % Absolute Granulocytes 1.08 L (1.4-6.9) Segmented Neutrophils 55 (36.0-66.0) % Lymphocytes (Manual) 27 (24-44) % Monocytes (Manual) 17 H (0.0-12.0) % Eosinophils (Manual) 1 (0.00-3.0) % Basophils # 0.01 (0-0.4) Platelet Estimate NORMAL (NORMAL) RBC Morphology NORMAL Sodium 137 (137-145) mmol/L Potassium 3.8 (3.5-5.1) mmol/L Chloride 109 H (98-107) mmol/L Carbon Dioxide 24 (22-30) mmol/L Anion Gap 7.5 (5-15) MEQ/L BUN 9 (7-17) mg/dL Creatinine 0.84 (0.52-1.04) mg/dL Estimated GFR > 60.0 ML/MIN Glucose 104 (74-106) mg/dL Lactic Acid (0.4-2.0) Calcium 8.8 (8.4-10.2) mg/dL Total Bilirubin 0.30 (0.2-1.3) mg/dL AST 42 H (14-36) U/L ALT 40 H (0-35) U/L Alkaline Phosphatase 116 (38-126) U/L Troponin I (0.000-0.034) ng/mL Serum Total Protein 7.2 (6.3-8.2) g/dL Albumin 4.2 (3.5-5.0) g/dL Amylase 75 (30-110) U/L Lipase 153 (23-300) U/L Urine Color (YELLOW) Urine Appearance (CLEAR) Urine pH (5-6) Ur Specific Lexa (1.005-1.025) Urine Protein (Negative) Urine Ketones (NEGATIVE) Urine Blood (0-5) Srinath/ul Urine Nitrite (NEGATIVE) Urine Bilirubin (NEGATIVE) Urine Urobilinogen (0-1) mg/dL Ur Leukocyte Esterase (NEGATIVE) Urine WBC (Auto) (0-5) /HPF Urine RBC (Auto) (0-2) /HPF U Epithel Cells (Auto) (FEW) /HPF Urine Bacteria (Auto) (NEGATIVE) /HPF Urine Culture Reflexed (NO) Urine Glucose (NEGATIVE) mg/dL Influenza Type A Ag (NEGATIVE) Influenza Type B Ag (NEGATIVE) RSV (PCR) (Negative) SARS-CoV-2 (PCR) (NEGATIVE) 06/16/21 Range/Units 22:54 WBC (4.0-10.5) K/mm3 RBC (4.1-5.4) M/mm3 Hgb (12.0-16.0) gm/dl Hct (35-47) % MCV (78-100) fl MCH (26-32) pg MCHC (32-36) g/dl RDW (11.5-14.0) % Plt Count (150-450) K/mm3 MPV (7.5-11.0) fl Gran % (36.0-66.0) % Eos # (Auto) (0-0.5) Absolute Lymphs (auto) (1.0-4.6) Absolute Monos (auto) (0.0-1.3) Lymphocytes % (24.0-44.0) % Monocytes % (0.0-12.0) % Eosinophils % (0.00-5.0) % Basophils % (0.0-0.4) % Absolute Granulocytes (1.4-6.9) Segmented Neutrophils (36.0-66.0) % Lymphocytes (Manual) (24-44) % Monocytes (Manual) (0.0-12.0) % Eosinophils (Manual) (0.00-3.0) % Basophils # (0-0.4) Platelet Estimate (NORMAL) RBC Morphology Sodium (137-145) mmol/L Potassium (3.5-5.1) mmol/L Chloride (98-107) mmol/L Carbon Dioxide (22-30) mmol/L Anion Gap (5-15) MEQ/L BUN (7-17) mg/dL Creatinine (0.52-1.04) mg/dL Estimated GFR ML/MIN Glucose (74-106) mg/dL Lactic Acid (0.4-2.0) Calcium (8.4-10.2) mg/dL Total Bilirubin (0.2-1.3) mg/dL AST (14-36) U/L ALT (0-35) U/L Alkaline Phosphatase (38-126) U/L Troponin I (0.000-0.034) ng/mL Serum Total Protein (6.3-8.2) g/dL Albumin (3.5-5.0) g/dL Amylase (30-110) U/L Lipase (23-300) U/L Urine Color YELLOW (YELLOW) Urine Appearance CLEAR (CLEAR) Urine pH 7.0 (5-6) Ur Specific Lexa 1.011 (1.005-1.025) Urine Protein NEGATIVE (Negative) Urine Ketones NEGATIVE (NEGATIVE) Urine Blood NEGATIVE (0-5) Srinath/ul Urine Nitrite NEGATIVE (NEGATIVE) Urine Bilirubin NEGATIVE (NEGATIVE) Urine Urobilinogen NEGATIVE (0-1) mg/dL Ur Leukocyte Esterase NEGATIVE (NEGATIVE) Urine WBC (Auto) NONE (0-5) /HPF Urine RBC (Auto) NONE (0-2) /HPF U Epithel Cells (Auto) NONE (FEW) /HPF Urine Bacteria (Auto) NONE (NEGATIVE) /HPF Urine Culture Reflexed NO (NO) Urine Glucose NEGATIVE (NEGATIVE) mg/dL Influenza Type A Ag (NEGATIVE) Influenza Type B Ag (NEGATIVE) RSV (PCR) (Negative) SARS-CoV-2 (PCR) (NEGATIVE) - Progress Progress Note: 06/17/21 05:33 1gm po Tylenol w decrease in fever 1gm IV Rocephin 06/17/21 05:34 After discussing possible admit w pt, pt would rather go home and f/u w Dr. Moise on Saturday06/17/21 05:35 Blood culture x1 - Departure Departure Disposition: Home Clinical Impression: Fever of unknown origin (FUO), Leukopenia Condition: Stable Critical Care Time: No Referrals: MINOO MOISE [Primary Care Provider] - Follow up/PCP as directed Instructions: Fever, Adult (DC) Additional Instructions: Follow up with Dr. Moise on Saturday Return to ER for any new signs/symptoms Tylenol for temperature greater than 100.5
[2021-06-16] MEDS ORDERED: TYLENOL EXTRA STRENGTH 500 MG PO PRN (23:21)
[2021-06-16 23:25] LABS: ALBUMIN 4.2 g/dL (3.5-5.0); ALKALINE PHOSPHATASE 116 U/L (38-126); AMYLASE 75 U/L (30-110); ANION GAP 7.5 MEQ/L (5-15); BLOOD UREA NITROGEN 9 mg/dL (7-17); CHLORIDE 109 mmol/L (98-107); Calcium 8.8 mg/dL (8.4-10.2); Carbon Dioxide 24 mmol/L (22-30); Creatinine 1 0.84 mg/dL (0.52-1.04); EST GLOMERULAR FILTRATION RATE > 60.0 ML/MIN; Glucose 104 mg/dL (74-106); LIPASE 153 U/L (23-300); Potassium 3.8 mmol/L (3.5-5.1); SGOT/AST 42 U/L (14-36); SGPT/ALT 40 U/L (0-35); SODIUM 137 mmol/L (137-145); Total Protein 7.2 g/dL (6.3-8.2)
[2021-06-16] MEDS ORDERED: TYLENOL EXTRA STRENGTH 500 MG PO STA (23:32)
[2021-06-16] MEDS ORDERED: TYLENOL EXTRA STRENGTH 500 MG ONE (23:34)
[2021-06-16 23:35] LABS: Appearance CLEAR (CLEAR); Bilirubin NEGATIVE (NEGATIVE); Blood NEGATIVE Ery/ul (0-5); Glucose NEGATIVE (NEGATIVE); Ketones NEGATIVE (NEGATIVE); Leukocyte Esterase NEGATIVE (NEGATIVE); Nitrite NEGATIVE (NEGATIVE); Protein,Urine Dip NEGATIVE (Negative); Specific Gravity 1.011 (1.005-1.025); Urobilinogen NEGATIVE mg/dL (0-1)
[2021-06-16 23:42] LABS: Absolute Neutrophil Ct (ANC) 1.08 (1.4-6.9); BASOPHIL % 0.5 % (0.0-0.4); Basophil (Absolute #) 0.01 (0-0.4); Eosinophil (Absolute #) 0 (0-0.5); Hematocrit 38.1 % (35-47); Hemoglobin 11.7 gm/dl (12.0-16.0); Lymphocyte (Absolute #) 0.49 (1.0-4.6); Lymphocytes % 25.7 % (24.0-44.0); Mean Cell Volume 90.1 fl (78-100); Mean Corpuscular Hemoglobin 27.7 pg (26-32); Mean Corpuscular Hgb Concent. 30.7 g/dl (32-36); Mean Platelet Volume 10.5 fl (7.5-11.0); Monocyte (Absolute #) 0.33 (0.0-1.3); Monocytes % 17.3 % (0.0-12.0); Neutrophil % 56.5 % (36.0-66.0); Platelet Count 155 K/mm3 (150-450); Red Blood Count 4.23 M/mm3 (4.1-5.4); Red Cell Distribution Width 12.3 % (11.5-14.0)
[2021-06-17 00:24] LABS: White Blood Count 1.9 K/mm3 (4.0-10.5)
[2021-06-17 01:33] LABS: INFLUENZA A NEGATIVE (NEGATIVE); INFLUENZA B NEGATIVE (NEGATIVE); RESPIRATORY SYNCTIAL VIRUS NEGATIVE (Negative); SARS-CoV-2 Xpert Express NEGATIVE (NEGATIVE)
[2021-06-17 03:09] LABS: Eosinophil 1 % (0.00-3.0); Lymphocytes 27 % (24-44); Monocyte 17 % (0.0-12.0); Neutrophils 55 % (36.0-66.0); Platelet Estimate NORMAL (NORMAL); Total Cells Counted 100
[2021-06-17] MEDS ORDERED: ROCEPHIN 1 Gm-D5w 50 ml Bag** 1 G/50 ML IVPB IV STA (05:31)
[2021-06-17] MEDS ORDERED: ROCEPHIN 1 Gm-D5w 50 ml Bag** 1 G/50 ML IVPB IV ONE (05:34)
--- NOTE | 2021-06-17 08:10 | XRAY ---
Indication: Fever and weakness. Multiple contiguous axial images obtained through the chest without contrast. Comparison: None Lungs demonstrate mild bilateral dependent atelectasis and mild left base fibrosis/scarring. Left lower lobe demonstrates a 1.1 x 0.8 x 1.1 cm noncalcified nodularity. No infiltrates, effusion, or pneumothorax. Heart not enlarged. Aorta is normal in course and caliber. No pathologic mediastinal lymphadenopathy. Bony thorax intact with old right 6/7 rib fractures. Limited upper abdomen unremarkable. Impression: 1. Small indeterminate left lower lobe noncalcified nodularity. Outside comparison studies recommended. If not, PET CT may yield further information. 2. Remaining CT chest without contrast exam is negative. Common: Preliminary interpretation made by [facility]. No critical discrepancy.
--- NOTE | 2021-06-17 08:12 | XRAY ---
Indication: Fever and headache. Comparison: October 10, 2017. Portable chest demonstrates minimal left base subsegmental atelectasis/scarring. Remaining heart and lungs clear. Bony thorax intact again with old right 6/7 rib fractures. No new/acute findings.
== END 2021-06-17 06:22 | disposition home or self-care (01) ==
LOC: ED 22:12
DX: R50.9 Fever, unspecified (principal); D72.819 Decreased white blood cell count, unspecified; R51.9 Headache, unspecified; Z79.899 Other long term (current) drug therapy; R19.7 Diarrhea, unspecified; R30.0 Dysuria
CPT/HCPCS: 0241U; 36415; 71045; 71250; 80053; 81001; 82150; 83605; 83690; 84484; 85025; 87040; 99284; J0696; A9270-GY

== ENCOUNTER 2022-12-10 15:25 | Emergency (ER) | payer BC, OTHER ==
[2022-12-10 15:47] VITALS: O2SAT 98
--- NOTE | 2022-12-10 16:06 | ERPHSYRPT ---
- History of Present Illness Time Seen by Provider: 12/10/22 15:45 Source: patient Exam Limitations: no limitations Patient Subjective Stated Complaint: C/O right rib pain. Patient states she fell approx 2 weeks ago and has had rib pain since that is getting worse. Indicates she attempted to be see at [facility] first but they sent her down to the ER. Triage Nursing Assessment: Patient ambulated back to ER without difficulties. No SOB. She is alert and oriented. Patient indicates she can't raise her right arm above her head when asked to do so independently related to the pain it causes in her right rib area when attempting to do so. Physician History: This is a 57-year-old white female patient of Dr. Moise who fell approximately 2 weeks ago onto her right ribs. Patient underwent an x-ray of her ribs at that time and it was negative for any acute fracture. I reviewed the impression of the radiologist for that x-ray. Patient went to [facility] just prior to arrival today and they sent her to the emergency department. She has pain in the area where she injured in the right lower rib area anteriorly along the lower ribs laterally. She is not short of breath. She was given a prescription by her primary care physician for [place] pain pills which did not help her per her report. Occurred: other (2 weeks ago) Injuries/Pain Location: chest (Right lower/lateral ribs) Loss of Consciousness: no loss of consciousness Quality: aching, sharpness Severity of Pain-Max: mild (Moderate) Severity of Pain-Current: mild (To moderate) Modifying Factors: Improves With: movement Associated Symptoms (Fall): denies symptoms Allergies/Adverse Reactions: azithromycin [From Zithromax] Allergy (Severe, Verified 12/10/22 15:36) myasthenia crisis erythromycin base [Erythromycin Base] Allergy (Severe, Verified 12/10/22 15:36) myasthenia crisis levofloxacin [From Levaquin] Allergy (Severe, Verified 12/10/22 15:36) myasthenia crisis tramadol [From Ultram] Adverse Reaction (Intermediate, Verified 12/10/22 15:36) Rash Home Medications: Diazepam 5 mg [Valium 5 MG] 5 mg PO HS 03/21/13 [History] Mycophenolate Mofetil [Cellcept] 1,000 mg PO BID 03/21/13 [History] Isosorbide Mononitrate [Isosorbide Mononitrate ER] 60 mg PO DAILY 02/15/14 [History] Pyridostigmine [place] [Pyridostigmine [place] ER] 180 mg PO BID 02/03/16 [History] Duloxetine HCl [Cymbalta] 20 mg PO BID 03/13/18 [History] Diclofenac Sodium Gel [Voltaren GEL] 1 gm TOP BIDPRN PRN 03/01/19 [History] Gabapentin [Neurontin] 600 mg PO Q4H PRN 03/01/19 [History] Nitroglycerin 0.4 mg Tablet [Nitrostat 0.4 MG Tablet] 1 mg SL Q5MIN PRN MR X 3 PRN 03/01/19 [History] Pyridostigmine [place] [Mestinon] 60 mg PO BID 03/01/19 [History] Dicyclomine HCl 20 mg [Bentyl 20 mg] 20 mg PO TID 05/08/19 [History] Alendronate Sodium 70 mg [Fosamax 70 MG] 70 mg PO WEEKLY 06/16/21 [History] Amoxicillin/Potassium Clav [Augmentin 875-125 Tablet] 1 tab PO BID 06/16/21 [ History] Cyanocobalamin/Folic Acid [Vitamin O50-Bprei Acid Tablet] 1 tab SL DAILY 06/16/21 [History] Ergocalciferol (Vitamin D2) [Vitamin D2] 1.25 mg PO WEEKLY 06/16/21 [History] Hx Tetanus, Diphtheria Vaccination/Date Given: Yes Hx Influenza Vaccination/Date Given: No Hx Pneumococcal Vaccination/Date Given: No Immunizations Up to Date: Yes Travel Risk - International Travel Have you traveled outside of the country in past 3 weeks: No - Coronavirus Screening Are you exhibiting any of the following symptoms?: No Close contact with a COVID-19 positive Pt in past 14-21 Days: No - Vaccine Status Have you recieved a Covid-19 vaccination: Yes Se[employer] T[employer] Drawer: Moderna - Vaccination Dates Date of 2cond Vaccination (if applicable): ? - Review of Systems Constitutional: No Symptoms Eyes: No Symptoms Ears, Nose, & Throat: No Symptoms Respiratory: No Symptoms Cardiac: No Symptoms Abdominal/Gastrointestinal: No Symptoms Genitourinary Symptoms: No Symptoms Musculoskeletal: Injury (Right lower lateral ribs) Skin: No Symptoms Neurological: No Symptoms Psychological: No Symptoms Endocrine: No Symptoms Hematologic/Lymphatic: No Symptoms Immunological/Allergic: No Symptoms All Other Systems: Reviewed and Negative - Past Medical History Pertinent Past Medical History: Yes Neurological History: TIA ENT History: No Pertinent History Cardiac History: Other Respiratory History: No Pertinent History Endocrine Medical History: Other Musculoskeletal History: Osteoarthritis GI Medical History: Colitis, Diverticulosis History: No Pertinent History Psycho-Social History: No Pertinent History Female Reproductive Disorders: No Pertinent History Other Medical History: ARRHYTHMIA, MITRAL VALVE PROLAPSE, MYASTHENIAS GRAVIS - Past Surgical History Past Surgical History: Yes Neuro Surgical History: No Pertinent History Cardiac: Other Respiratory: No Pertinent History Gastrointestinal: No Pertinent History Genitourinary: No Pertinent History Musculoskeletal: Other Female Surgical History: Hysterectomy Other Surgical History: cervical fusion - Social History Smoking Status: Never smoker Exposure to second hand smoke: No Drug Use: none Patient Lives Alone: No - Nursing Vital Signs Nursing Vital Signs: Initial Vital Signs Temperature 97.6 F 12/10/22 15:36 Pulse Rate 73 12/10/22 15:36 Respiratory Rate 18 12/10/22 15:36 Blood Pressure 136/71 12/10/22 15:36 O2 Sat by Pulse Oximetry 98 12/10/22 15:36 Pain Scale Pain Intensity 6 - [place] Coma Score Best Eye Response ([place]): (4) open spontaneously Best Verbal Response ([place]): (5) oriented Best Motor Response ([place]): (6) obeys commands Ana Lilia Total: 15 - Physical Exam General Appearance: no apparent distress, alert Head Injury: no evidence of injury Eye Exam: PERRL/EOMI, eyes nml inspection ENT Exam: airway nml, nml ext.inspection, No evidence of ENT injury, No dental injury Neck Exam: supple, trachea midline, full range of motion, normal alignment, normal inspection Respiratory/Chest Exam: normal breath sounds, rib tenderness (Right lateral lower ribs), No chest tenderness, No respiratory distress, No ecchymosis, No crepitus Cardiovascular Exam: normal heart sounds, regular rate/rhythm Gastrointestinal Exam: soft, normal bowel sounds, No tenderness Rectal Exam: not done Back Exam: normal inspection, normal range of motion, No CVA tenderness, No vertebral tenderness Extremity Exam: normal inspection, normal range of motion, capillary refill <3 sec, pelvis stable Neurologic Exam: alert, oriented x 3, cooperative, rn clinical resource II-XII nml as tested, normal mood/affect, nml cerebellar function, nml station & gait, sensation nml Skin Exam: normal color, warm, dry SpO2 Interpretation: normal SpO2: 98 O2 Delivery: Room Air - Course Nursing assessment & vital signs reviewed: Yes Ordered Tests: Active Orders 24 hr Category Date Time Status CHEST WITHOUT CONTRAST [CT] Stat Exams 12/10/22 15:50 Completed - Progress Progress: unchanged Progress Note: 12/10/22 16:22 This patient's medical issue who is 1 of low medical complexity. The work-up performed and the level of complexity is based on review of the patient's past medical history, review of her medication list, review of her drug allergy list, review of recent chest x-ray/rib x-ray results, history of present illness and physical findings on examination. The work-up today includes a CT scan of the chest. Outpatient treatment will include prednisone 10 mg orally 3 times a day for 4 days. In addition patient will be prescribed Norflex 100 mg orally twice a day. 12/10/22 16:59 CT scan of the chest without contrast shows a nondisplaced right fifth through seventh rib without hemothorax or pneumothorax. There is also a left lower lobe stable, indeterminate subcentimeter noncalcified nodule. These findings were discussed with the patient. Counseled pt/family regarding: diagnosis, need for follow-up, rad results Medical Desision Making - External Record(s) Reviewed Records reviewed as a part of evaluation & management: Clinic (Outpatient chest x-ray dated 11/28/2022) - Diagnostic Testing Diagnostic test were ordered, analyzed, and reviewed by me: Yes Radiological Interpretation: Reviewed by me, Teleradiologist Report - Risk of complications The pt has a mod risk of morbidity or mortality based on: Need for prescription drug management - Departure Departure Disposition: Home Clinical Impression: Right rib fracture, Left lower lobe pulmonary nodule Condition: Stable Critical Care Time: No Referrals: MINOO MOISE [Primary Care Provider] - Follow up/PCP as directed Additional Instructions: Ice pack to tender ribs 3 times a day for next 48 hours. Take your medication as prescribed. Do not take your Percocet within 3 hours from the time of your diazepam and gabapentin medication. Follow-up with Dr. Moise in his office by phone tomorrow to make arrangements for an appointment in 5 to 7 days. Prescriptions: Oxycodone HCl/Acetaminophen [Percocet 5-325 mg Tablet] 1 each PO Q8H PRN PRN #6 tablet MDD 3 PRN Reason: Moderate To Severe Pain Prednisone 10 mg [Deltasone 10 mg] 10 mg PO TID #12 tablet
--- NOTE | 2022-12-10 16:55 | XRAY ---
Indication: Rib pain following fall 2 weeks ago. Multiple contiguous images obtained through the chest without contrast. Comparison: January 12, 2022 Lungs again demonstrates mild bilateral dependent atelectasis. Left lower lobe demonstrates stable 7 mm noncalcified nodule (image 46). Inferior lingula demonstrates new subsegmental atelectasis. No infiltrate, effusion, or pneumothorax. Heart not enlarged. Aorta is normal in course and caliber. No pathologic mediastinal lymphadenopathy. New small hiatal hernia. Bony thorax demonstrates new nondisplaced lateral right 5-7 rib fractures. Stable minimal degenerative changes throughout the spine. Limited upper abdomen demonstrates stable small hepatic cyst. Impression: 1. New nondisplaced right 5-7 rib fractures without hemothorax/pneumothorax. 2. New small hiatal hernia. 3. Stable indeterminate subcentimeter left lower lobe noncalcified nodule and incidental hepatic cyst.
[2022-12-10 17:11] VITALS: BP 123/64; PULSE 70
== END 2022-12-10 17:19 | disposition home or self-care (01) ==
LOC: ED 15:25
DX: S22.41XA Multiple fractures of ribs, right side, initial encounter for closed fracture (principal); W19.XXXA Unspecified fall, initial encounter; R91.1 Solitary pulmonary nodule; Z79.899 Other long term (current) drug therapy; Z79.52 Long term (current) use of systemic steroids; Z79.891 Long term (current) use of opiate analgesic
CPT/HCPCS: 71250; 99282

== ENCOUNTER 2022-12-30 20:03 | Emergency (ER) | payer BC ==
--- NOTE | 2022-12-30 20:30 | ERPHSYRPT ---
- History of Present Illness Time Seen by Provider: 12/30/22 20:30 Source: patient Exam Limitations: no limitations Physician History: This is a 57-year-old white female patient who has known right rib fractures based on a CT scan that was performed on 12/10/2022. Patient was getting into a kayak when she slipped and fell onto her right shoulder she has significant right shoulder pain measuring at 8 out of 10 in intensity. Patient has a history of TIAs, osteoarthritis, colitis/diverticulitis, mitral valve prolapse, and arrhythmias. Patient has a history of osteoporosis Occurred: just prior to arrival Method of Injury: fell Quality: aching Severity of Pain-Max: moderate Severity of Pain-Current: moderate Extremities Pain Location: shoulder: right Modifying Factors: Improves With: movement Allergies/Adverse Reactions: azithromycin [From Zithromax] Allergy (Severe, Verified 12/30/22 20:36) myasthenia crisis erythromycin base [Erythromycin Base] Allergy (Severe, Verified 12/30/22 20:36) myasthenia crisis levofloxacin [From Levaquin] Allergy (Severe, Verified 12/30/22 20:36) myasthenia crisis tramadol [From Ultram] Adverse Reaction (Intermediate, Verified 12/30/22 20:36) Rash Home Medications: Diazepam 5 mg [Valium 5 MG] 5 mg PO HS 03/21/13 [History] Mycophenolate Mofetil [Cellcept] 1,000 mg PO BID 03/21/13 [History] Isosorbide Mononitrate [Isosorbide Mononitrate ER] 60 mg PO DAILY 02/15/14 [History] Pyridostigmine [place] [Pyridostigmine [place] ER] 180 mg PO BID 02/03/16 [History] Duloxetine HCl [Cymbalta] 20 mg PO BID 03/13/18 [History] Diclofenac Sodium Gel [Voltaren GEL] 1 gm TOP BIDPRN PRN 03/01/19 [History] Gabapentin [Neurontin] 600 mg PO Q4H PRN 03/01/19 [History] Nitroglycerin 0.4 mg Tablet [Nitrostat 0.4 MG Tablet] 1 mg SL Q5MIN PRN MR X 3 PRN 03/01/19 [History] Pyridostigmine [place] [Mestinon] 60 mg PO BID 03/01/19 [History] Dicyclomine HCl 20 mg [Bentyl 20 mg] 20 mg PO TID 05/08/19 [History] Alendronate Sodium 70 mg [Fosamax 70 MG] 70 mg PO WEEKLY 06/16/21 [History] Amoxicillin/Potassium Clav [Augmentin 875-125 Tablet] 1 tab PO BID 06/16/21 [History] Cyanocobalamin/Folic Acid [Vitamin T96-Mbhxj Acid Tablet] 1 tab SL DAILY 06/16/21 [History] Ergocalciferol (Vitamin D2) [Vitamin D2] 1.25 mg PO WEEKLY 06/16/21 [History] Hx Tetanus, Diphtheria Vaccination/Date Given: Yes Hx Influenza Vaccination/Date Given: No Hx Pneumococcal Vaccination/Date Given: No Travel Risk - International Travel Have you traveled outside of the country in past 3 weeks: No - Coronavirus Screening Are you exhibiting any of the following symptoms?: No Close contact with a COVID-19 positive Pt in past 14-21 Days: No - Vaccine Status Have you recieved a Covid-19 vaccination: Yes Environmental Restoration Planner: Moderna - Vaccination Dates Date of 2cond Vaccination (if applicable): ? - Review of Systems Constitutional: No Symptoms Eyes: No Symptoms Ears, Nose, & Throat: No Symptoms Respiratory: No Symptoms Cardiac: No Symptoms Abdominal/Gastrointestinal: No Symptoms Genitourinary Symptoms: No Symptoms Musculoskeletal: Fall, Joint Pain (Right shoulder) Neurological: No Symptoms Psychological: No Symptoms Endocrine: No Symptoms Hematologic/Lymphatic: No Symptoms Immunological/Allergic: No Symptoms All Other Systems: Reviewed and Negative - Past Medical History Pertinent Past Medical History: Yes Neurological History: TIA ENT History: No Pertinent History Cardiac History: Other Respiratory History: No Pertinent History Endocrine Medical History: Other Musculoskeletal History: Osteoarthritis GI Medical History: Colitis, Diverticulosis History: No Pertinent History Psycho-Social History: No Pertinent History Female Reproductive Disorders: No Pertinent History Other Medical History: ARRHYTHMIA, MITRAL VALVE PROLAPSE, MYASTHENIAS GRAVIS - Past Surgical History Past Surgical History: Yes Neuro Surgical History: No Pertinent History Cardiac: Other Respiratory: No Pertinent History Gastrointestinal: No Pertinent History Genitourinary: No Pertinent History Musculoskeletal: Other Female Surgical History: Hysterectomy Other Surgical History: cervical fusion - Social History Smoking Status: Never smoker Exposure to second hand smoke: No Drug Use: none Patient Lives Alone: No - Nursing Vital Signs Nursing Vital Signs: Initial Vital Signs Temperature 98.4 F 12/30/22 20:37 Pulse Rate 62 12/30/22 20:37 Respiratory Rate 18 12/30/22 20:37 Blood Pressure 142/80 12/30/22 20:37 O2 Sat by Pulse Oximetry 100 12/30/22 20:37 Pain Scale Pain Intensity 8 - Physical Exam General Appearance: no apparent distress, alert, anxiety, thin Eyes, Ears, Nose, Throat Exam: normal ENT inspection, moist mucous membranes Neck Exam: normal inspection, non-tender, supple, full range of motion Cardiovascular/Respiratory Exam: chest non-tender, no respiratory distress Abdominal Exam: non-tender Back Exam: normal inspection, normal range of motion, No CVA tenderness, No vertebral tenderness Shoulder Exam: bone tenderness, limited ROM, soft tissue tenderness, No no evidence of injury Elbow/Forearm Exam: normal inspection, non-tender, no evidence of injury, normal ROM Wrist Exam: normal inspection, non-tender, no evidence of injury, normal ROM Hand Exam: normal inspection, non-tender, no evidence of injury, normal ROM Neuro/Tendon Exam: normal sensation, normal motor functions, normal tendon functions Mental Status Exam: alert, oriented x 3, cooperative Skin Exam: normal color, warm, dry SpO2 Interpretation: normal O2 Delivery: Room Air - Course Nursing assessment & vital signs reviewed: Yes Ordered Tests: Active Orders 24 hr Category Date Time Status Sling Application STAT Care 12/30/22 22:43 Active UPPER EXTREMITY W/O CONTRAST [CT] Stat Exams 12/30/22 21:03 Completed - Progress Progress: improved, pain not gone completely, re-examined Progress Note: 12/30/22 21:38 Patient's medical issue is 1 of low complexity. The level of complexity and work-up performed was based on review of the patient's past medical history, review of the patient's medication list, review of the patient's drug allergy list, history of present illness, and physical findings on examination. We ordered a CT scan of the right shoulder. Ordinarily I told the patient I would not do that but there was plain films done of the patient's ribs in the past and she was having persistent pain and the fracture was found on the CT scan and therefore she is requesting this. I do not think this is unreasonable. 12/30/22 23:13 I reviewed the impression that the radiologist reported regarding the CT scan of the patient's right shoulder. Patient has a comminuted fracture of the right p roximal humerus with fracture lines passing through the greater tuberosity and anatomical neck of the humerus. These findings were discussed with the patient and the patient's spouse. Patient will follow-up tomorrow morning at 8 AM with orthopedic clinic here at [facility]. She is to wear the sling for comfort and stabilization. We will provide her with a Percocet 10/325 pain medicine and to take home 10/325 medication. Counseled pt/family regarding: diagnosis, need for follow-up, rad results Medical Desision Making - Independent Historian Additional History obtained from: Spouse - Diagnostic Testing Radiological Interpretation: Reviewed by me, Teleradiologist Report - Risk of complications The pt has a mod risk of morbidity or mortality based on: Need for prescription drug management - Departure Departure Disposition: Home Clinical Impression: Fracture of proximal humerus Condition: Stable Critical Care Time: No Referrals: MINOO ESPINAL [Primary Care Provider] - Follow up/PCP as directed Additional Instructions: Wear the sling for pain control and for stabilization. Follow-up tomorrow morning, 12/31/2022 at [facility] orthopedic walk-in clinic at 8 AM. There you will be evaluated and obtain further management.
--- NOTE | 2022-12-30 22:53 | XRAY ---
CLINICAL HISTORY:Fall injury to right shoulder; COMPARISON:None; TECHNIQUES:Multiple axial sections of CT of right shoulder were acquired without IV contrast administration. In addition, coronal and sagittal views were also acquired. DLP: 2076.38 mGy*cm, CTDI: 71.95 mGy; FINDINGS: Comminuted fracture of the right humeral head is noted. Fracture lines are seen passing through the greater tuberosity and anatomical neck of the humerus. No significant displacement is noted. Glenohumeral joint space is preserved. Mild surrounding soft tissue swelling is noted. No shoulder dislocation is seen. No fracture of the right scapula and clavicle are noted. The acromioclavicular joint is normal. Visualized ribs are normal. No significant lung contusion or pneumothorax in the visualized lungs. IMPRESSION: Comminuted fracture of the right proximal humerus with fracture lines passing through the greater tuberosity and anatomical neck of the humerus. [facility] ED was called at [phone] at 09:37 PM RECREATION CENTER DIRECTOR, 12/30/2022 and the Significant medical findings were verbally communicated with Fran Velasquez. Electronically Signed by: Pardeep Mendoza MD. (12/30/2022 21:44:43 RECREATION CENTER DIRECTOR)
[2022-12-30] MEDS ORDERED: OXYCODONE-ACETAMINOPHEN 10-325 PO STA ×2 (23:16)
[2022-12-30] MEDS ORDERED: OXYCODONE-ACETAMINOPHEN 10-325 ONE (23:31)
[2022-12-30 23:38] VITALS: BP 129/73
[2022-12-31 00:02] VITALS: PULSE 73; O2SAT 100
== END 2022-12-30 23:51 | disposition home or self-care (01) ==
LOC: ED 20:03
DX: S42.294A Other nondisplaced fracture of upper end of right humerus, initial encounter for closed fracture (principal); W01.0XXA Fall on same level from slipping, tripping and stumbling without subsequent striking against object, initial encounter; Y93.16 Activity, rowing, canoeing, kayaking, rafting and tubing; Z79.899 Other long term (current) drug therapy
CPT/HCPCS: 73200; 99283; A9270-GY

== ENCOUNTER 2024-09-16 12:41 | Emergency (ER) | payer BC, MEDICARE ==
[2024-09-16 12:54] VITALS: TEMP 96.5
[2024-09-16 13:31] LABS: Absolute Neutrophil Ct (ANC) 5.26 x10^3/uL (1.56-6.13); Basophil (Absolute #) 0 x10^3/uL (0.01-0.08); Eosinophil % 0.6 % (0.7-5.8); Eosinophil (Absolute #) 0.04 x10^3/uL (0.04-0.36); Hematocrit 38.7 % (34.1-44.9); Hemoglobin 12.5 g/dL (11.2-15.7); IMMATURE GRAN # 0.03 x10^3u/L (0.001-0.031); IMMATURE GRAN % 0.5 % (0.001-0.429); Lymphocyte (Absolute #) 0.71 x10^3/uL (1.18-3.74); Lymphocytes % 11.2 % (19.3-51.7); Mean Cell Volume 90.8 fL (79.4-94.8); Mean Corpuscular Hemoglobin 29.3 pg (25.6-32.2); Mean Corpuscular Hgb Concent. 32.3 g/dL (32.2-35.5); Mean Platelet Volume 10.8 fL (9.4-12.3); Monocyte (Absolute #) 0.29 x10^3/uL (0.24-0.86); Monocytes % 4.6 % (4.7-12.5); Neutrophil % 83.1 % (34.0-71.1); Platelet Count 195 x10^3/uL (182-369); Red Blood Count 4.26 x10^6/uL (3.93-5.22); Red Cell Distribution Width 12.3 % (11.7-14.4); White Blood Count 6.3 x10^3/uL (3.98-10.04)
[2024-09-16 13:45] LABS: ALBUMIN 4.6 g/dL (3.5-5.0); ANION GAP 12.1 MEQ/L (5-15); BILIRUBIN,TOTAL 0.5 mg/dL (0.2-1.3); Calcium 8.8 mg/dL (8.4-10.2); Creatinine 1 0.83 mg/dL (0.52-1.04); EST GLOMERULAR FILTRATION RATE 81.2 ML/MIN; MAGNESIUM 1.8 mg/dL (1.6-2.3); Potassium 3.9 mmol/L (3.5-5.1); Total Protein 8.4 g/dL (6.3-8.2)
--- NOTE | 2024-09-16 13:59 | XRAY ---
Indication: Syncope. Status post fall. Multiple contiguous axial images obtained through the head without contrast. Comparison: January 10, 2021 Normal appearing brain parenchyma, ventricles, and bony calvarium for patient's age. Minimal mucosal thickening both ethmoid sinuses. Mastoid air cells are clear. Impression: New minimal paranasal sinus disease. Remaining CT head without contrast exam continues to be normal.
[2024-09-16] MEDS ORDERED: Zofran 4 MG/2 ML VIAL ONE (14:05)
[2024-09-16] MEDS ORDERED: Sodium Chloride 0.9% 1000 ML 1,000 ML ONE (14:06)
[2024-09-16] MEDS ORDERED: SUBLIMAZE 100 MCG/2 ML ONE (14:06)
[2024-09-16] MEDS: Sodium Chloride 0.9% 1000 ML 1,000 ML IV STA (14:07)
[2024-09-16] MEDS: Zofran 4 MG/2 ML VIAL IV ONE (14:07)
[2024-09-16] MEDS: SUBLIMAZE 100 MCG/2 ML IV ONE (14:07)
--- NOTE | 2024-09-16 14:07 | XRAY ---
Indication: Syncope. Status post fall. Multiple contiguous axial images obtained through the cervical spine. Sagittal and coronal reformatted images obtained. Comparison: None There is type III odontoid fracture with approximately 3 mm anterior displacement of odontoid process relative to body of C2. C2 fracture further extends right laterally as a nondisplaced comminuted fracture. No spinal canal encroachment/stenosis. Elsewhere minimal C4-C7 anterior/posterior endplate spurring and previous C5-C6 fusion with intact anterior hardware/intervertebral spacer. Sagittal and coronal reformatted images demonstrate lordotic straightening, positional versus paraspinal spasm. Minimal C4-C5 and C6-C7 disc space narrowing. No acute compression fracture or jumped facet. Normal appearing craniocervical junction. Visualized noncontrasted soft tissues including lung apices are unremarkable. Impression: 1. C2 and odontoid process acute fractures as detailed. 2. C4-C7 degenerative endplate changes and previous C5-C6 fusion. Comment: Telephone report given to ordering clinician Dr. Crockett at 1402 hrs. on September 16, 2024.
--- NOTE | 2024-09-16 14:09 | XRAY ---
Indication: Cough. Syncope. Comparison: June 16, 2021 Portable chest again demonstrates minimal left base subsegmental atelectasis/scarring. Remaining lungs clear. Heart not enlarged. Bony thorax intact again with old right rib fractures. No new/acute findings.
--- NOTE | 2024-09-16 14:12 | ERPHSYRPT ---
- History of Present Illness Time Seen by Provider: 09/16/24 12:45 Source: patient Exam Limitations: no limitations Patient Subjective Stated Complaint: Pt states "I have not been feeling well and I have diarrhea.". Pt states "She was in the bathroom and she fell I think she hit her head and when I went in to check on her she looked like she had a seizure. Her eyes were open and she was not speaking to me at all. It lasted approx 1.5 minutes." Triage Nursing Assessment: Pt presented alert and oriented X 3, skin pwd. Pt ambualtes with an upright steady gait, able to speak in clear full sentences. Pt at bedside doing all the talking for pt. Pt able to speak and will answer questions when posed at her. Physician History: 58-year-old female with history of myasthenia gravis, cervical fusions presented in the ER after she was having loose stools/diarrhea since yesterday, patient reports feeling as if she was passed out earlier today and prior to arrival she was in the bathroom where she fell and hit her head against the wall. reports she was dazed out for almost a minute and a half and slowly came back. Patient did not have any full-blown seizure like activity. She is complaining of pain in the back of her head and upper neck area mild to moderate and is unable to move her neck on the left side. Patient is placed in a c-collar immediately on presentation in the ER. Patient denies any numbness tingling or weakness of upper or lower extremities. Denies any chest pain palpitations or shortness of breath. Has minimal abdominal discomfort. No fever or chills reported. Allergies/Adverse Reactions: azithromycin [From Zithromax] Allergy (Severe, Verified 12/30/22 20:36) myasthenia crisis erythromycin base [Erythromycin Base] Allergy (Severe, Verified 12/30/22 20:36) myasthenia crisis levofloxacin [From Levaquin] Allergy (Severe, Verified 12/30/22 20:36) myasthenia crisis tramadol [From Ultram] Adverse Reaction (Intermediate, Verified 12/30/22 20:36) Rash Home Medications: Diazepam 5 mg [Valium 5 MG] 5 mg PO HS 03/21/13 [History] Isosorbide Mononitrate [Isosorbide Mononitrate ER] 60 mg PO DAILY 02/15/14 [History] Pyridostigmine [place] [Pyridostigmine [place] ER] 180 mg PO BID 02/03/16 [H istory] Duloxetine HCl [Cymbalta] 20 mg PO BID 03/13/18 [History] Gabapentin [Neurontin] 600 mg PO Q4H PRN 03/01/19 [History] Nitroglycerin 0.4 mg Tablet [Nitrostat 0.4 MG Tablet] 1 mg SL Q5MIN PRN MR X 3 PRN 03/01/19 [History] Pyridostigmine [place] [Mestinon] 180 mg PO BID 03/01/19 [History] Ergocalciferol (Vitamin D2) [Vitamin D2] 1.25 mg PO WEEKLY 06/16/21 [History] Hx Tetanus, Diphtheria Vaccination/Date Given: No Hx Influenza Vaccination/Date Given: No Hx Pneumococcal Vaccination/Date Given: No Immunizations Up to Date: No Travel Risk - International Travel Have you traveled outside of the country in past 3 weeks: No - Emerging Infectious Disease Are you exhibiting symptoms associated with any current EIDs: No - Review of Systems Constitutional: Fatigue, Weakness Eyes: No Symptoms Ears, Nose, & Throat: No Symptoms Respiratory: Cough Cardiac: No Symptoms Abdominal/Gastrointestinal: Abdominal Pain, Nausea, Diarrhea Genitourinary Symptoms: No Symptoms Musculoskeletal: Neck Pain, Fall Skin: No Symptoms Neurological: Headache Psychological: No Symptoms Endocrine: Other Hematologic/Lymphatic: No Symptoms Immunological/Allergic: No Symptoms - Past Medical History Pertinent Past Medical History: Yes Neurological History: Peripheral Neuropathy, Other ENT History: No Pertinent History Cardiac History: Other Respiratory History: Pneumonia, Other Endocrine Medical History: No Pertinent History Musculoskeletal History: Fractures GI Medical History: Colitis, Diverticulosis History: No Pertinent History Psycho-Social History: No Pertinent History Female Reproductive Disorders: No Pertinent History Other Medical History: Myesthenia Gravis, COVID-19, pneumonia multiple times (Jun and Jul 2021 was placed on ventilator) - Past Surgical History Past Surgical History: Yes Neuro Surgical History: No Pertinent History Cardiac: Other Respiratory: No Pertinent History Gastrointestinal: No Pertinent History Genitourinary: No Pertinent History Musculoskeletal: Other Female Surgical History: Hysterectomy Other Surgical History: cervical fusion - Social History Smoking Status: Never smoker Exposure to second hand smoke: No Drug Use: none Patient Lives Alone: No - Social Determinants of Health Will the patient participate in the screening: Declined to provide - Nursing Vital Signs Nursing Vital Signs: Initial Vital Signs Temperature 96.5 F 09/16/24 12:46 Pulse Rate 74 09/16/24 12:46 Respiratory Rate 18 09/16/24 12:46 Blood Pressure 93/56 09/16/24 12:46 O2 Sat by Pulse Oximetry 96 09/16/24 12:46 Pain Scale Pain Intensity 0 - Ana Lilia Coma Score Best Eye Response (Ruth): (4) open spontaneously Best Verbal Response (Ana Lilia): (5) oriented Best Motor Response (Ruth): (6) obeys commands Ruth Total: 15 - Physical Exam General Appearance: no apparent distress, alert Head Injury: no evidence of injury Eye Exam: PERRL/EOMI, eyes nml inspection ENT Exam: airway nml, No evidence of ENT injury, No dental injury Neck Exam: supple, trachea midline, normal alignment, muscle spasm, c-collar in place Respiratory/Chest Exam: normal breath sounds, respiratory distress, No chest tenderness Cardiovascular Exam: normal heart sounds, regular rate/rhythm Gastrointestinal Exam: soft, normal bowel sounds, No tenderness Back Exam: normal inspection, normal range of motion Extremity Exam: normal inspection, normal range of motion Neurologic Exam: alert, oriented x 3, cooperative, drop press hand II-XII nml as tested, normal mood/affect, nml cerebellar function, sensation nml, No motor deficits Skin Exam: normal color SpO2 Interpretation: normal SpO2: 99 O2 Delivery: Room Air - Course EKG Interpreted by Me: RATE (74), Sinus Rhythm, NORMAL AXIS, NORMAL INTERVALS, Right Bundle Branch Block (Incomplete), Non-specific ST Changes Ordered Tests: Medication Summary Discontinued Medications Generic Name Dose Route Start Last Admin Trade Name Chitoq PRN Reason Stop Dose Admin Fentanyl Citrate 25 mcg 09/16/24 13:25 09/16/24 14:07 Fentanyl Citrate 100 Mcg/2 Ml* Vial IV 09/16/24 13:26 25 mcg STAT ONE Administration Fentanyl Citrate Confirm 09/16/24 14:06 Fentanyl Citrate 100 Mcg/2 Ml* Vial Administered 09/16/24 14:07 Dose 100 mcg .ROUTE .STK-MED ONE Sodium Chloride 1,000 mls @ 999 mls/hr 09/16/24 13:25 09/16/24 15:52 Sodium Chloride 0.9% 1000 Ml IV 09/16/24 14:25 Infused .Q1H1M STA Infusion Sodium Chloride Confirm 09/16/24 14:06 Sodium Chloride 0.9% 1000 Ml Administered 09/16/24 14:07 Dose 1,000 mls @ ud .ROUTE .STK-MED ONE Ondansetron HCl 4 mg 09/16/24 13:25 09/16/24 14:07 Ondansetron Hcl 4 Mg/2 Ml Vial IV 09/16/24 13:26 4 mg STAT ONE Administration Ondansetron HCl Confirm 09/16/24 14:05 Ondansetron Hcl 4 Mg/2 Ml Vial Administered 09/16/24 14:06 Dose 4 mg .ROUTE .STK-MED ONE Lab/Rad Data: Laboratory Result Diagrams 09/16/24 13:15 09/16/24 13:15 Laboratory Results 09/16/24 09/16/24 09/16/24 Range/Units 13:15 13:15 13:15 WBC 6.3 (3.98-10.04) x10^3/uL RBC 4.26 (3.93-5.22) x10^6/uL Hgb 12.5 (11.2-15.7) g/dL Hct 38.7 (34.1-44.9) % MCV 90.8 (79.4-94.8) fL MCH 29.3 (25.6-32.2) pg MCHC 32.3 (32.2-35.5) g/dL RDW 12.3 (11.7-14.4) % Plt Count 195 (182-369) x10^3/uL MPV 10.8 (9.4-12.3) fL Gran % 83.1 H (34.0-71.1) % Immature Gran % (Auto) 0.5 H (0.001-0.429) % Nucleat RBC Rel Count 0.0 (0.00-0.2) % Eos # (Auto) 0.04 (0.04-0.36) x10^3/uL Immature Gran # (Auto) 0.03 (0.001-0.031) x10^3u/L Absolute Lymphs (auto) 0.71 L (1.18-3.74) x10^3/uL Absolute Monos (auto) 0.29 (0.24-0.86) x10^3/uL Absolute Nucleated RBC 0.00 (0.00-0.012) x10^3u/L Lymphocytes % 11.2 L (19.3-51.7) % Monocytes % 4.6 L (4.7-12.5) % Eosinophils % 0.6 L (0.7-5.8) % Basophils % 0.0 L (0.1-1.2) % Absolute Granulocytes 5.26 (1.56-6.13) x10^3/uL Basophils # 0 L (0.01-0.08) x10^3/uL Sodium 136 (135-145) mmol/L Potassium 3.9 (3.5-5.1) mmol/L Chloride 105 (98-107) mmol/L Carbon Dioxide 22 (22-30) mmol/L Anion Gap 12.1 (5-15) MEQ/L BUN 24 H (7-17) mg/dL Creatinine 0.83 (0.52-1.04) mg/dL Estimated GFR 81.2 ML/MIN Glucose 161 H (74-106) mg/dL Lactic Acid (0.4-2.0) Calcium 8.8 (8.4-10.2) mg/dL Magnesium 1.8 (1.6-2.3) mg/dL Total Bilirubin 0.50 (0.2-1.3) mg/dL AST 35 (14-36) U/L ALT 21 (0-35) U/L Alkaline Phosphatase 92 (38-126) U/L Troponin I < 0.012 (0.000-0.033) ng/mL Serum Total Protein 8.4 H (6.3-8.2) g/dL Albumin 4.6 (3.5-5.0) g/dL 09/16/24 Range/Units 13:10 WBC (3.98-10.04) x10^3/uL RBC (3.93-5.22) x10^6/uL Hgb (11.2-15.7) g/dL Hct (34.1-44.9) % MCV (79.4-94.8) fL MCH (25.6-32.2) pg MCHC (32.2-35.5) g/dL RDW (11.7-14.4) % Plt Count (182-369) x10^3/uL MPV (9.4-12.3) fL Gran % (34.0-71.1) % Immature Gran % (Auto) (0.001-0.429) % Nucleat RBC Rel Count (0.00-0.2) % Eos # (Auto) (0.04-0.36) x10^3/uL Immature Gran # (Auto) (0.001-0.031) x10^3u/L Absolute Lymphs (auto) (1.18-3.74) x10^3/uL Absolute Monos (auto) (0.24-0.86) x10^3/uL Absolute Nucleated RBC (0.00-0.012) x10^3u/L Lymphocytes % (19.3-51.7) % Monocytes % (4.7-12.5) % Eosinophils % (0.7-5.8) % Basophils % (0.1-1.2) % Absolute Granulocytes (1.56-6.13) x10^3/uL Basophils # (0.01-0.08) x10^3/uL Sodium (135-145) mmol/L Potassium (3.5-5.1) mmol/L Chloride (98-107) mmol/L Carbon Dioxide (22-30) mmol/L Anion Gap (5-15) MEQ/L BUN (7-17) mg/dL Creatinine (0.52-1.04) mg/dL Estimated GFR ML/MIN Glucose (74-106) mg/dL Lactic Acid 1.8 (0.4-2.0) Calcium (8.4-10.2) mg/dL Magnesium (1.6-2.3) mg/dL Total Bilirubin (0.2-1.3) mg/dL AST (14-36) U/L ALT (0-35) U/L Alkaline Phosphatase (38-126) U/L Troponin I (0.000-0.033) ng/mL Serum Total Protein (6.3-8.2) g/dL Albumin (3.5-5.0) g/dL - Progress Progress: pain not gone completely, re-examined Progress Note: 09/16/24 14:32 58-year-old with history of myasthenia gravis is evaluated in the ER with syncope and fall prior to arrival with history of diarrhea/viral symptoms. Patient was complaining of neck pain, placed in c-collar promptly on presentation in the ER. No focal neuro deficit. EKG is sinus rhythm with no ST elevations. CT head is negative for any acute intracranial findings. CT cervical spine showed C2 [place] toyed fracture and comminuted fracture of C2 with some displacement. I have shared the results of workup with patient and family and recommended transfer to trauma center. Lab work is fairly unremarkable. Patient is given symptomatic treatment, feeling better on reevaluation. Discussed with [facility], reviewed history, workup and patient is excepted on behalf of Dr. Dalton in ER. Counseled pt/family regarding: lab results, diagnosis, need for follow-up, rad results Medical Desision Making - Independent Historian Additional History obtained from: Spouse - Discussion of managment Care discussed with:: on-call "doc" Reviewed:: Test results Will see patient: in ED - Diagnostic Testing Diagnostic test were ordered, analyzed, and reviewed by me: Yes Radiological Interpretation: Reviewed by me - Risk of complications The pt has a mod risk of morbidity or mortality based on: Need for prescription drug management The pt has a high risk of morbidity or mortality based on: Need for major surgery in patient with known risk factors - Departure Departure Disposition: Transfer Clinical Impression: Closed cervical spine fracture, Syncope and collapse, Flu-like symptoms Condition: Good Critical Care Time: Yes Critical Care Time(excluding separately billable procedures): Critical 30-74 mins Referrals: MINOO EPSINAL [Primary Care Provider] - Follow up/PCP as directed
[2024-09-16 14:37] VITALS: PULSE 74
[2024-09-16 15:34] VITALS: BP 108/63; RESP 17
[2024-09-17 23:34] VITALS: O2SAT 99
== END 2024-09-16 15:55 | disposition short-term general hospital (02) ==
LOC: ED 12:41
DX: S12.190A Other displaced fracture of second cervical vertebra, initial encounter for closed fracture (principal); S12.120A Other displaced dens fracture, initial encounter for closed fracture; W18.39XA Other fall on same level, initial encounter; Y92.002 Bathroom of unspecified non-institutional (private) residence as the place of occurrence of the external cause; R55 Syncope and collapse; R19.7 Diarrhea, unspecified; R51.9 Headache, unspecified; Z79.899 Other long term (current) drug therapy
CPT/HCPCS: 36415; 70450; 71045; 72125; 80053; 83605; 83735; 84484; 85025; 93005; 96360; 96374; 96375; 99285; 99291; J2405; J3010

== ENCOUNTER 2025-06-11 21:10 | Emergency (ER) | payer MEDICARE ==
[2025-06-11 21:26] VITALS: TEMP 97.2
--- NOTE | 2025-06-11 21:52 | ERPHSYRPT ---
- History of Present Illness Patient Subjective Stated Complaint: c/o neck pain, headache, eye twitching, and weakness Triage Nursing Assessment: patient brought to ED by with c/o neck pain, headache, eye pain, and weakness. patient states that she has a history of myasthenis gravis, brought in by wheelchair, states pain is 5/10 at this time. skin w/n/d, afebrile, patient states that she has a history of GI issues and just feels off and wanted to get checked out. patient took a fall in Sep. and had a hangmans fracture. patient doesn't appear to be in any distress at this time. Physician History: Generalized weakness, patient developed generalized weakness and was concerned that there may have been a change in her cervical spine as she had a fracture at C2 earlier in the year, she thinks that she may have a pinched nerve secondary to that fracture, she has no pain in her shoulders or back, she had no recent falls, she does have a history of myasthenia gravis and she has some facial weakness and overall general weakness, No recent change in her myasthenia gravis medications, Last evaluation by neurology in December Timing/Duration: today Severity: moderate Character of Deficits: new weakness Deficits: off balance Baseline/Normal Cognition: alert oriented x 3 Current Cognition: alert oriented x 3 Baseline Gait: walks w/o assistance Associated Symptoms: fatigue Allergies/Adverse Reactions: azithromycin [From Zithromax] Allergy (Severe, Verified 06/11/25 21:26) myasthenia crisis erythromycin base [Erythromycin Base] Allergy (Severe, Verified 06/11/25 21:26) myasthenia crisis levofloxacin [From Levaquin] Allergy (Severe, Verified 06/11/25 21:26) myasthenia crisis tramadol [From Ultram] Adverse Reaction (Intermediate, Verified 06/11/25 21:26) Rash Home Medications: Diazepam 5 mg [Valium 5 MG] 5 mg PO HS 03/21/13 [History] Isosorbide Mononitrate [Isosorbide Mononitrate ER] 60 mg PO DAILY 02/15/14 [History] Pyridostigmine [place] [Pyridostigmine [place] ER] 180 mg PO BID 02/03/16 [History] Duloxetine HCl [Cymbalta] 20 mg PO BID 03/13/18 [History] Gabapentin [Neurontin] 600 mg PO Q4H PRN 03/01/19 [History] Pyridostigmine [place] [Mestinon] 180 mg PO BID 03/01/19 [History] Ergocalciferol (Vitamin D2) [Vitamin D2] 1.25 mg PO WEEKLY 06/16/21 [History] Immun Glob G(IgG)/Pro/Iga 0-50 [Hizentra 1 Gram/5 ml Syringe] 1 gm IJ WEEKLY 06/11/25 [History] Immun Glob G(IgG)/Pro/Iga 0-50 [Hizentra 10 Gram/50 ml Syringe] 10 gm IJ WEEKLY 06/11/25 [History] Immun Glob G(IgG)/Pro/Iga 0-50 [Hizentra 4 Gram/20 ml Syringe] 4 gm IJ WEEKLY 06/11/25 [History] Levetiracetam [Keppra Xr] 500 mg PO BID 06/11/25 [History] Hx Tetanus, Diphtheria Vaccination/Date Given: No Hx Influenza Vaccination/Date Given: No Hx Pneumococcal Vaccination/Date Given: No Travel Risk - International Travel Have you traveled outside of the country in past 3 weeks: No - Emerging Infectious Disease Are you exhibiting symptoms associated with any current EIDs: No - Past Medical History Pertinent Past Medical History: Yes Neurological History: Other ENT History: No Pertinent History Cardiac History: Other Respiratory History: No Pertinent History Endocrine Medical History: Diabetes Type II Musculoskeletal History: Fractures GI Medical History: Colitis, Diverticulosis History: No Pertinent History Psycho-Social History: No Pertinent History Female Reproductive Disorders: No Pertinent History 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 fall in september, myasthenis gravis - Past Surgical History Past Surgical History: Yes Neuro Surgical History: No Pertinent History Cardiac: Other Respiratory: No Pertinent History Gastrointestinal: No Pertinent History Genitourinary: No Pertinent History Musculoskeletal: Other Female Surgical History: Hysterectomy Other Surgical History: cervical fusion - Social History Smoking Status: Never smoker Exposure to second hand smoke: No Drug Use: none - Social Determinants of Health Will the patient participate in the screening: Declined to provide - Nursing Vital Signs Nursing Vital Signs: Initial Vital Signs Temperature 97.2 F 06/11/25 21:17 Pulse Rate 59 L 06/11/25 21:17 Respiratory Rate 18 06/11/25 21:17 Blood Pressure 129/68 06/11/25 21:17 O2 Sat by Pulse Oximetry 98 06/11/25 21:17 Pain Scale Pain Intensity 5 - Physical Exam General Appearance: no apparent distress, alert Eye Exam: bilateral eye: PERRL, EOMI Ears, Nose, Throat Exam: normal ENT inspection, moist mucous membranes Neck Exam: normal inspection, non-tender, supple Respiratory: normal breath sounds, lungs clear, airway intact, No respiratory distress Cardiovascular: regular rate/rhythm, No edema Gastrointestinal: soft, No tenderness, No distention Back Exam: normal inspection Extremity Exam: normal inspection, No pedal edema Mental Status: alert, oriented x 3 general assistant Exam: normal speech, PERRL, tongue midline Coordination/Gait: normal finger to nose, normal gait Motor/Sensory: no motor deficit, no sensory deficit, no pronator drift Skin Exam: normal color, warm, dry, No rash SpO2 Interpretation: normal SpO2: 98 Ordered Tests: Active Orders 24 hr Category Date Time Status NPO (ED) STAT Care 06/11/25 21:48 Active CERVICAL SPINE WO CONTRAST [CT] Stat Exams 06/11/25 21:49 Completed CHEST 1 VIEW (PORTABLE) Stat Exams 06/11/25 21:48 Taken HEAD WITHOUT CONTRAST [CT] Stat Exams 06/11/25 21:49 Completed CBC W DIFF Stat Lab 06/11/25 21:50 Completed CMP Stat Lab 06/11/25 21:50 Completed Lactic Acid Stat Lab 06/11/25 21:46 Completed UA W/RFX UR CULTURE Stat Lab 06/11/25 22:02 Completed Lab/Rad Data: Laboratory Result Diagrams 06/11/25 21:50 06/11/25 21:50 Laboratory Results 06/11/25 06/11/25 06/11/25 Range/Units 22:02 21:50 21:50 WBC 6.9 (3.98-10.04) x10^3/uL RBC 4.24 (3.93-5.22) x10^6/uL Hgb 12.4 (11.2-15.7) g/dL Hct 38.5 (34.1-44.9) % MCV 90.8 (79.4-94.8) fL MCH 29.2 (25.6-32.2) pg MCHC 32.2 (32.2-35.5) g/dL RDW 12.3 (11.7-14.4) % Plt Count 250 (182-369) x10^3/uL MPV 10.4 (9.4-12.3) fL Gran % 39.0 (34.0-71.1) % Immature Gran % (Auto) 0.1 (0.001-0.429) % Nucleat RBC Rel Count 0.0 (0.00-0.2) % Eos # (Auto) 0.12 (0.04-0.36) x10^3/uL Immature Gran # (Auto) 0.01 (0.001-0.031) x10^3u/L Absolute Lymphs (auto) 3.61 (1.18-3.74) x10^3/uL Absolute Monos (auto) 0.42 (0.24-0.86) x10^3/uL Absolute Nucleated RBC 0.00 (0.00-0.012) x10^3u/L Lymphocytes % 52.5 H (19.3-51.7) % Monocytes % 6.1 (4.7-12.5) % Eosinophils % 1.7 (0.7-5.8) % Basophils % 0.6 (0.1-1.2) % Absolute Granulocytes 2.67 (1.56-6.13) x10^3/uL Basophils # 0.04 (0.01-0.08) x10^3/uL Sodium 136 (135-145) mmol/L Potassium 3.8 (3.5-5.1) mmol/L Chloride 108 H (98-107) mmol/L Carbon Dioxide 25 (22-30) mmol/L Anion Gap 7.0 (5-15) MEQ/L BUN 15 (7-17) mg/dL Creatinine 0.66 (0.52-1.04) mg/dL Estimated GFR 100.4 ML/MIN Glucose 134 H (74-106) mg/dL Lactic Acid (0.4-2.0) Calcium 9.2 (8.4-10.2) mg/dL Total Bilirubin < 0.10 L (0.2-1.3) mg/dL AST 34 (14-36) U/L ALT 20 (0-35) U/L Alkaline Phosphatase 118 (38-126) U/L Serum Total Protein 8.2 (6.3-8.2) g/dL Albumin 4.5 (3.5-5.0) g/dL Urine Color Yellow (Yellow) Urine Appearance Clear (Clear) Urine pH 7.0 (4.6-8.0) Ur Specific Hematite <=1.005 (1.005-1.030) Urine Protein Negative (Negative) Urine Glucose (UA) Negative (Negative) mg/dL Urine Ketones Negative (Negative) Urine Blood Negative (Negative) Urine Nitrite Negative (Negative) Urine Bilirubin Negative (Negative) Urine Urobilinogen 0.2 (0.2) mg/dL Ur Leukocyte Esterase Small A (Negative) U Hyaline Cast (Auto) NONE SEEN (0-2) /LPF Urine Microscopic RBC 0-2 (0-5) /HPF Urine Microscopic WBC 0-2 (0-5) /HPF Ur Epithelial Cells None Seen (None Seen) /HPF Urine Bacteria None Seen (None Seen) /HPF Urine Culture Reflexed NO (NO) 06/11/25 Range/Units 21:46 WBC (3.98-10.04) x10^3/uL RBC (3.93-5.22) x10^6/uL Hgb (11.2-15.7) g/dL Hct (34.1-44.9) % MCV (79.4-94.8) fL MCH (25.6-32.2) pg MCHC (32.2-35.5) g/dL RDW (11.7-14.4) % Plt Count (182-369) x10^3/uL MPV (9.4-12.3) fL Gran % (34.0-71.1) % Immature Gran % (Auto) (0.001-0.429) % Nucleat RBC Rel Count (0.00-0.2) % Eos # (Auto) (0.04-0.36) x10^3/uL Immature Gran # (Auto) (0.001-0.031) x10^3u/L Absolute Lymphs (auto) (1.18-3.74) x10^3/uL Absolute Monos (auto) (0.24-0.86) x10^3/uL Absolute Nucleated RBC (0.00-0.012) x10^3u/L Lymphocytes % (19.3-51.7) % Monocytes % (4.7-12.5) % Eosinophils % (0.7-5.8) % Basophils % (0.1-1.2) % Absolute Granulocytes (1.56-6.13) x10^3/uL Basophils # (0.01-0.08) x10^3/uL Sodium (135-145) mmol/L Potassium (3.5-5.1) mmol/L Chloride (98-107) mmol/L Carbon Dioxide (22-30) mmol/L Anion Gap (5-15) MEQ/L BUN (7-17) mg/dL Creatinine (0.52-1.04) mg/dL Estimated GFR ML/MIN Glucose (74-106) mg/dL Lactic Acid 1.6 (0.4-2.0) Calcium (8.4-10.2) mg/dL Total Bilirubin (0.2-1.3) mg/dL AST (14-36) U/L ALT (0-35) U/L Alkaline Phosphatase (38-126) U/L Serum Total Protein (6.3-8.2) g/dL Albumin (3.5-5.0) g/dL Urine Color (Yellow) Urine Appearance (Clear) Urine pH (4.6-8.0) Ur Specific Hematite (1.005-1.030) Urine Protein (Negative) Urine Glucose (UA) (Negative) mg/dL Urine Ketones (Negative) Urine Blood (Negative) Urine Nitrite (Negative) Urine Bilirubin (Negative) Urine Urobilinogen (0.2) mg/dL Ur Leukocyte Esterase (Negative) U Hyaline Cast (Auto) (0-2) /LPF Urine Microscopic RBC (0-5) /HPF Urine Microscopic WBC (0-5) /HPF Ur Epithelial Cells (None Seen) /HPF Urine Bacteria (None Seen) /HPF Urine Culture Reflexed (NO) - Progress Progress Note: 06/12/25 00:14 Discussed results, patient was relieved that she had no new issues going on with her cervical spine, she does not believe that she is in myasthenia gravis crisis, I consulted [facility] neurology and they stated if she did not have any areas of weakness on examination she could be discharged home and follow-up in clinic, The patient requested steroids, She will follow-up with neurology next week - Departure Departure Disposition: Home Clinical Impression: Weakness Condition: Stable Critical Care Time: No Referrals: MINOO ESPINAL [Primary Care Provider, [facility]] - Follow up/PCP as directed Instructions: Myasthenia gravis Prescriptions: Prednisone 20 mg [Deltasone 20 mg] 20 mg PO DAILY #7 tablet
[2025-06-11 21:56] LABS: BASOPHIL % 0.6 % (0.1-1.2); Basophil (Absolute #) 0.04 x10^3/uL (0.01-0.08); Eosinophil (Absolute #) 0.12 x10^3/uL (0.04-0.36); Hematocrit 38.5 % (34.1-44.9); Hemoglobin 12.4 g/dL (11.2-15.7); IMMATURE GRAN # 0.01 x10^3u/L (0.001-0.031); IMMATURE GRAN % 0.1 % (0.001-0.429); Lymphocyte (Absolute #) 3.61 x10^3/uL (1.18-3.74); Mean Corpuscular Hemoglobin 29.2 pg (25.6-32.2); Mean Corpuscular Hgb Concent. 32.2 g/dL (32.2-35.5); Monocyte (Absolute #) 0.42 x10^3/uL (0.24-0.86); NUCLEATED RBC # 0.00 x10^3u/L (0.00-0.012); NUCLEATED RBC % 0.0 % (0.00-0.2); Platelet Count 250 x10^3/uL (182-369); Red Blood Count 4.24 x10^6/uL (3.93-5.22); White Blood Count 6.9 x10^3/uL (3.98-10.04)
[2025-06-11 22:09] LABS: Calcium 9.2 mg/dL (8.4-10.2); Carbon Dioxide 25 mmol/L (22-30); Creatinine 1 0.66 mg/dL (0.52-1.04); EST GLOMERULAR FILTRATION RATE 100.4 ML/MIN; Glucose 134 mg/dL (74-106); Potassium 3.8 mmol/L (3.5-5.1); SGOT/AST 34 U/L (14-36); SGPT/ALT 20 U/L (0-35); Total Protein 8.2 g/dL (6.3-8.2)
[2025-06-11 22:27] LABS: Glucose, Urine Negative (Negative); Protein,Urine Dip Negative (Negative); RBC 0-2 /HPF (0-5); WBC 0-2 /HPF (0-5)
--- NOTE | 2025-06-11 23:18 | XRAY ---
CLINICAL HISTORY: weakness COMPARISON: CT dated 09/16/2024. TECHNIQUE: Axial non-contrast CT scan of the brain was performed from the skull base to the high parietal region. One of the following dose reduction techniques was utilized for this exam: automated exposure control, adjustment of the mA and/or kV according to patient size, or use of iterative reconstruction. FINDINGS: Brain Parenchyma: Normal attenuation of the cerebral hemispheres, cerebellum, and brainstem. There is no evidence of acute infarct, hemorrhage, or mass effect. Tiny punctate foci of bilateral basal ganglia calcification are present, with tiny dilated perivascular spaces on the left side. Ventricular System: The ventricles are normal in size and configuration. There is no evidence of hydrocephalus or ventricular enlargement. Subarachnoid Spaces: The sulci and cisterns are normal. There is no evidence of subarachnoid hemorrhage or extra-axial fluid collections. Cerebellum and Brainstem: There are no masses, lesions, or areas of abnormal density. Orbits: Normal appearance of the globes, optic nerves, and extraocular muscles. There is no evidence of orbital masses or abnormal density. Sinuses: Mild opacification of the right posterior ethmoid air cells is present, with interval regression on the left side since the prior CT study. Mastoid Air Cells: The mastoid air cells are clear. There is no evidence of mastoiditis. Skull: Normal skull morphology. IMPRESSION: 1. No acute abnormality is detected on CT of the head without contrast. 2. Mild opacification of the right posterior ethmoid air cells is present, with interval regression on the left side since the prior CT study. 3. Please refer to the dedicated CT cervical spine report for detailed findings. Electronically Signed by: Gerardo Moran MD. (06/11/2025 23:17:36 EDT)
--- NOTE | 2025-06-11 23:40 | XRAY ---
CLINICAL HISTORY: weakness COMPARISON: 09/16/2024. TECHNIQUE: CT scan of the cervical spine was performed without the administration of intravenous contrast. Contiguous axial images were obtained from the skull base to the upper thoracic spine. Coronal and sagittal reformatted images were also reviewed. One of the following dose reduction techniques was utilized for this exam. Automated exposure control, adjustment of the mA and/or kV according to patient size, and use of iterative reconstruction. FINDINGS: Vertebrae: No evidence of acute fracture in cervical spine. Old healed fractures of the odontoid process and right lateral mass of C2 vertebra with slightly altered contour at present. Acute fractures detected on prior CT study dated 09/16/2024. Anterior spinal fixation at C5-C6 levels with intervertebral disc prosthesis again noted. Satisfactory alignment of the metallic hardware is identified. Loss of cervical lordosis with reversal of curvature. Grade I minimal anterolisthesis of C3 over C4, degenerative in nature. Stable Multilevel anterior and posterior osteophytes with uncovertebral hypertrophy noted. Atlantodental osteoarthritic changes again noted. Diffuse osteopenic changes again noted. Intervertebral Discs: Mild reduction of C4-C5 with moderate to severe reduction of C6-C7 intervertebral disc spaces. Multilevel posterior disc osteophyte complexes, predominant at C5-C6 and C6-C7 levels, resulting in neural foraminal narrowing accentuated by facetal arthropathy. Facet Joints: Severe degenerative changes. Prevertebral Soft Tissues: The prevertebral soft tissues are normal in thickness without evidence of mass or abnormal fluid collection. Additional Findings: Visualized sections of upper thorax show minimal apical lung fibrosis. IMPRESSION: 1. No evidence of acute fracture in cervical spine. 2. Old healed fractures of odontoid process and right lateral mass of C2 vertebra with slightly altered contour at present. 3. Anterior spinal fixation at C5-C6 levels with intervertebral disc prosthesis again noted.Satisfactory alignment of the metallic hardware is identified. 4. Moderate cervical spondylodegenerative changes as described above, unchanged. Electronically Signed by: Gerardo Moran MD. (06/11/2025 23:39:40 EDT)
[2025-06-12] MEDS ORDERED: DELTASONE 20 MG ONE (00:23)
[2025-06-12] MEDS: DELTASONE 20 MG PO ONE (00:24)
[2025-06-12 00:39] VITALS: BP 103/60; PULSE 57; RESP 15; O2SAT 96
--- NOTE | 2025-06-12 07:52 | XRAY ---
Indication: Weakness. Comparison: September 16, 2024 Portable chest again hyperinflated and is now clear. Heart not enlarged. Bony thorax intact again with osteopenia and old right 6/7 rib fractures. No new/acute findings.
== END 2025-06-12 00:34 | disposition home or self-care (01) ==
LOC: ED 21:10
DX: R53.1 Weakness (principal); E11.9 Type 2 diabetes mellitus without complications; G70.00 Myasthenia gravis without (acute) exacerbation; Z79.899 Other long term (current) drug therapy